=== PATIENT | male | born 1945 | race Caucasian/White ===

== ENCOUNTER → 2018-03-30 09:52 | Outpatient (CLI) | payer BC, SELFPAY ==
[2018-03-30 10:42] LABS: Absolute Lymphocyte Count 1.16 X10^3/ul (0.83-4.51); Absolute Neutrophil Count 3.7 X10^3/uL (2.0-7.7); Basophil# 0.03 X10^3/uL; Basophil% 0.6 % (0-1); Eosinophil# 0.08 X10^3/uL; Eosinophils% 1.5 % (0-5); Hematocrit 44.3 % (40-54); Hemoglobin 15.4 g/dl (13.0-16.5); Lymphocyte # 1.16 X10^3/ul (4.0); Lymphocyte % 21.4 % (19-41); Mean Corp Hgb Conc 34.8 g/gl (32-36); Mean Corpuscular Hgb 29.2 pg (27.0-32.0); Mean Corpuscular Volume 83.9 fL (80-94); Mean Platelet Vol. 10.7 fl (6.2-12.0); Monocyte# 0.43 X10^3/uL; Monocyte% 7.9 % (0-10); Neutrophil % 68.4 % (47-70); Platelet Count 153 K/mm3 (150-450); RBC Distribution Width CV 14.6 % (11.6-14.6); Red Blood Count 5.28 M/mm3 (4.6-6.2); White Blood Count 5.4 K/mm3 (4.4-11.0)
[2018-03-30 10:43] LABS: POSITIVE COUNT NO; POSITIVE DIFFERENTIAL NO; POSITIVE MORPHOLOGY NO
[2018-03-30 11:24] LABS: ALB/GLOB Ratio 1.2 RATIO (0.9-2.4); AST(SGOT) 17 U/L (15-37); Alanine Aminotransfer ALT/SGPT 23 U/L (16-61); Albumin, Serum 3.6 g/dL (3.2-5.0); Alkaline Phosphatase 75 U/L (45-117); Anion Gap 8 (5-15); BUN 18 mg/dL (7-18); BUN/Creat Ratio 16.7 RATIO (10-20); Calcium,Total 8.1 mg/dL (8.5-10.1); Chloride 110 mmol/L (98-107); Cholesterol 183 mg/dL (200); Creatinine, Serum 1.08 mg/dL (0.70-1.30); EST Glomerular Filtration Rate 72 mL/min (>60); Est Glom Filt Rate - Afr Amer 87 mL/min (>60); Glucose 88 mg/dL (74-106); High Density Lipoprotein 44 mg/dL; PSA,Total - Annual Screen 1.52 ng/mL (0.00-4.00); Potassium 4.5 mmol/L (3.5-5.1); Protein, Total 6.6 g/dL (6.4-8.2); Sodium Level 143 mmol/L (136-145); Thyroid Stim Hormone (TSH) 0.77 uIU/mL (0.358-3.74); Triglycerides 106 mg/dL; Very Low Density Lipoprotein 21 mg/dL (5-40)
--- OUTSIDE RECORDS SUMMARY | 2018-06-03 17:32 | XMS RPT_ITS | Summary of Care ---
:1945 Author Organization [facility] Address [address] [id number] Phone Care Team Providers Name Role Phone Susan Eller MD Primary Care Provider Reason for Visit Auth/Cert Status Reason Specialty Diagnoses / Procedures Referred By Contact Referred To Contact Diagnoses Persistent atrial fibrillation (HCC) Procedures Ablation Afib With Mapping Encounter Details Date Type Department Care Team Description 03/22/2017 Hospital Encounter [facility] Masoud Acuna, Persistent atrial Center Cardiac MD fibrillation (HCC) Non-Invasive Lab [address] [facility] [address] [place] [address] [phone] Allergies No Known Allergiesas of this encounter Medications Prescription Sig. Disp. Refills Start Date End Date Status ELIQUIS 5 mg Tab Take 5 mg by mouth 06/04/2015 Active 2 (two) times a day . metoprolol succinate Take 1 tablet (50 30 tablet 11 06/08/2015 02/06/2018 Active (TOPROL XL) 50 MG 24 mg total) by mouth hr daily. tabletIndications: Atrial fibrillation, unspecified lisinopril Take 10 mg by 09/28/2015 Active (PRINIVIL,ZESTRIL) mouth daily. 10 MG tablet CARTIA XT 180 mg 24 TAKE ONE CAPSULE 30 capsule 11 06/30/2016 Active hr BY MOUTH ONCE capsuleIndications: DAILY Atrial fibrillation (HCC) tadalafil (CIALIS) Take 1 (one) 6 tablet 10/31/2016 10/31/2017 Active 20 MG tablet (20 mg tabletIndications: total) by mouth as Erectile dysfunction needed for due to arterial erectile insufficiency dysfunction Take prior to sexual activity. propafenone (RYTHMOL Take 325 mg by Active SR) 325 MG 12 hr mouth 2 (two) capsule times a day. metoprolol succinate Take 1 (one) 180 tablet 1 02/06/2017 Active (TOPROL-XL) 50 MG 24 tablet (50 mg hr total) by mouth tabletIndications: daily. Persistent atrial fibrillation (HCC) as of this encounter Active Problems Problem Noted Date Persistent atrial fibrillation (HCC) 03/21/2017 Overview: Added automatically from request for surgery [id number] SVT (supraventricular tachycardia) (HCC) 03/21/2017 Erectile dysfunction due to arterial insufficiency 10/12/2015 Last Assessment & Plan: Trial of Cialis Atrial fibrillation (HCC) 06/08/2015 Overview: Probable Afib with RVR since URI in March KAI/CV 10/2015 Last Assessment & Plan: Rate controlled--54 Will cut toprol xl to 50 daily Cardiomyopathy (HCC) 06/08/2015 Overview: 35-40% Ef with Afib rvr - 05/2015 45% EF Last Assessment & Plan: No symptoms Doing well, Medications reviewed and will continue current meds Followup 1 year Social History Tobacco Use Types Packs/Day Years Used Date Never Smoker Smokeless Tobacco: Never Used Alcohol Use Drinks/Week oz/Week Comments No 0 Standard drinks or equivalent 0.0 Sex Assigned at Date Recorded Not on file as of this encounter Plan of Treatment Health Maintenance Due Date Last Done Comments COLONOSCOPY 1945 HEPATITIS C SCREENING 1945 TETANUS EVERY 10 YR 1945 ZOSTER VACCINE 2007 PNEUMOCOCCAL VACCINE AGE 65+ (1 of 2 - PCV13) 11/11/2012 SEQUENTIAL INFLUENZA VACCINE (#1) 2016 as of this encounter Procedures Procedure Name Priority Date/Time Associated Diagnosis Comments CARDIOVERSION EXTERNAL Routine 03/22/2017 2:32 Persistent atrial Results for this PM EST fibrillation (HCC) procedure are in the results section. in this encounter Results Cardioversion external (03/22/2017 2:32 PM) Narrative Indications/Pre-Op Diagnosis:: Atypical atrial flutter Conclusions / Diagnosis:?Successful DC cardioversion to sinus bradycardia with PACs. ? Technique: ? Following informed consent the patient was brought to the procedural room in a fasting state. The patient was connected to continuous cardiac rhythm and vital sign monitoring. Debrillator pads were placed in the appropriate location. The patient was given intravenous sedation medication by the anesthesiology service (please see their note for details). ? Synchronized biphasic cardioversion was performed at 100 joules. ? The patient recovered from sedation before leaving the procedural area in stable condition. Complications: No immediate complications. See nursing notes for further details Balwinder Morris MD, [facility] in this encounter Visit Diagnoses Diagnosis Persistent atrial fibrillation (HCC) Atrial fibrillation Insurance Payer Benefit Plan / Group Subscriber ID Type Phone Address DREW GRIGGS/PREF/HMO/PPO [id number] [phone] [place] [address] Home: as of this encounter
--- OUTSIDE RECORDS SUMMARY | 2018-06-03 17:32 | XMS RPT_ITS | Summary of Care ---
:1945 Author Organization [facility] Address [address] [place] [address] Phone Care Team Providers Name Role Phone Susan Eller MD Primary Care Provider Reason for Referral Cardio (Routine) Status Reason Specialty Diagnoses / Procedures Referred By Referred To Contact Contact Closed Cardiology Diagnoses Persistent atrial fibrillation (HCC) Marquis Acuna MD Procedures Echocardiogram transesophageal [address] [facility] [address] [place] [address] Cardio (Routine) Status Reason Specialty Diagnoses / Procedures Referred By Referred To Contact Contact Closed Cardiology Diagnoses Persistent atrial fibrillation (HCC) Marquis Acuna MD Procedures Echocardiogram transesophageal [address] [facility] [address] [place] [address] Reason for Visit Auth/Cert Status Reason Specialty Diagnoses / Procedures Referred By Contact Referred To Contact Diagnoses Persistent atrial fibrillation (HCC) Procedures Ablation Afib With Mapping Encounter Details Date Type Department Care Team Description 03/22/2017 Hospital Encounter [facility] Marquis Acuna MD [address] [facility] [address] [place] [address] [phone] Persistent atrial Center Cardiac [place], Balwinder Danielle MD [address] [facility] [address] [place] [address] fibrillation (HCC) Non-Invasive Lab [address] [place] [address] Allergies No Known Allergiesas of this encounter [...] tadalafil (CIALIS) Take 1 (one) 6 tablet 11 10/31/2016 10/31/2017 Active 20 MG tablet (20 [...] mouth tabletIndications: daily. Persistent atrial fibrillation (HCC) HYDROXYZINE HCL ORAL Take 25 mg by Active mouth as needed. as of this encounter Active Problems Problem Noted Date Persistent atrial fibrillation (HCC) 03/21/2017 Overview: Added automatically from request for surgery [id number] SVT (supraventricular tachycardia) ([facility]) 03/21/2017 Erectile dysfunction due to arterial insufficiency 10/12/2015 Last Assessment & Plan: Trial of Cialis Atrial fibrillation ([facility]) 06/08/2015 Overview: Probable Afib with RVR since URI in March KAI/CV 10/2015 Last Assessment & Plan: Rate controlled--54 Will cut toprol xl to 50 daily Cardiomyopathy ([facility]) 06/08/2015 Overview: 35-40% Ef with Afib rvr [...] Not on file as of this encounter Last Filed Vital Signs Vital Sign Reading Time Taken Blood Pressure 110/91 03/22/2017 3:00 PM EST Pulse 56 03/22/2017 3:15 PM EST Temperature 36.4 ??C (97.5 ??F) 03/22/2017 1:00 PM EST Respiratory Rate 12 03/22/2017 3:15 PM EST Oxygen Saturation 97% 03/22/2017 3:15 PM EST Inhaled Oxygen Concentration - - Weight 101.2 kg (223 lb) 03/22/2017 1:00 PM EST Height 190.5 cm (6' 3) 03/22/2017 1:00 PM EST Body Mass Index 27.87 03/22/2017 1:00 PM EST in this encounter Discharge Instructions Discharge Instr - Other Orders - Shari Arias RN - 03/22/2017 3:20 PM EST NOTHING TO EAT OR DRINK UNTIL 4 pm, THEN START WITH A SIP OF COOL LIQUID AND IF NO PROBLEMS YOU MAY RESUME REGULAR DIET NO DRIVING TODAY, NO SIGNING ANY LEGAL DOCUMENTS CONTINUE ALL OF YOUR HOME MEDS OFFICE WILL CALL WITH DATE FOR ABLATION Shari Arias RN - 03/22/2017Learning About Atrial Fibrillation What is atrial fibrillation? Atrial fibrillation (say AY-tree-mal rul-cukt-PLH-un) is the most common type of irregular heartbeat (arrhythmia). Normally, the heart beats in a strong, steady rhythm. In atrial fibrillation, a problem with the heart's electrical system causes the two upper parts of the heart (the atria) to quiver, or fibrillate. Your heart rate also may be faster than normal. Atrial fibrillation can be dangerous because if the heartbeat isn't strong and steady, blood can collect, or pool, in the atria. And pooled blood is more likely to form clots. Clots can travel to the brain, block blood flow, and cause a stroke. Atrial fibrillation can also lead to heart failure. Treatment for atrial fibrillation helps prevent stroke and heart failure. It also helps relieve symptoms. Atrial fibrillation is often caused by another heart problem. It may happen after heart surgery. It may also be caused by other problems, such as an overactive thyroid gland or lung disease. Many people with atrial fibrillation are able to live full and active lives. What are the symptoms? Some people feel symptoms when they have episodes of atrial fibrillation. But other people don't notice any symptoms. If you have symptoms, you may feel: ?? A fluttering, racing, or pounding feeling in your chest called palpitations. ?? Weak or tired. ?? Dizzy or lightheaded. ?? Short of breath. ?? Chest pain. ?? Confused. You may notice signs of atrial fibrillation when you check your pulse. Your pulse may seem uneven orfast. What can you expect when you have atrial fibrillation? At first, spells of atrial fibrillation may come on suddenly and last a short time. It may go away on its own or it goes away after treatment. This is called paroxysmal atrial fibrillation. Over time, the spells may last longer and occur more often. They often don't go away on their own. How is it treated? Treatments can help you feel better and prevent future problems, especially stroke and heart failure. The main types of treatment slow the heart rate, control the heart rhythm, and help prevent stroke. Your treatment will depend on the cause of your atrial fibrillation, your symptoms, and your risk forstroke. ?? Heart rate treatment. Medicine may be used to slow your heart rate. Your heartbeat may still be irregular. But these medicines keep your heart from beating too fast. They may also help relieve your symptoms. ?? Heart rhythm treatment. Different treatments may be used to try to stop atrial fibrillation and keep it from returning. They can also relieve symptoms. These treatments include medicine, electrical cardioversion to shock the heart back to a normal rhythm, a procedure called catheter ablation, and heart surgery. ?? Stroke prevention. You and your doctor can decide how to lower your risk. You may decide to take a blood-thinning medicine, such as aspirin or an anticoagulant. How can you live well with it? You can live well and help manage atrial fibrillation by having a heart-healthy lifestyle. To have a heart-healthy lifestyle: ?? Don't smoke. ?? Eat heart-healthy foods. ?? Be active. Talk to your doctor about what type and level of exercise is safe for you. ?? Stay at a healthy weight. Lose weight if you need to. ?? Manage stress. ?? Avoid alcohol if it triggers symptoms. ?? Manage other health problems such as high blood pressure, high cholesterol, and diabetes. ?? Avoid getting sick from the flu. Get a flu shot every year. When should you call for help? Call 911 anytime you think you may need emergency care. For example, call if: ?? You have symptoms of a stroke. These may include: ?? Sudden numbness, tingling, weakness, or loss of movement in your face, arm, or leg, especially ononly one side of your body. ?? Sudden vision changes. ?? Sudden trouble speaking. ?? Sudden confusion or trouble understanding simple statements. ?? Sudden problems with walking or balance. ?? A sudden, severe headache that is different from past headaches. Call your doctor now or seek immediate medical care if: ?? You have new or increased shortness of breath. ?? You feel dizzy or lightheaded, or you feel like you may faint. Watch closely for changes in your health, and be sure to contact your doctor if you have any problems. Follow-up care is a hahn part of your treatment and safety. Be sure to make and go to all appointments, and call your doctor if you are having problems. It's also a good idea to know your test results and keep a list of the medicines you take. Where can you learn more? Log into your personal health record on https://[employer] and enter L274 in the Education box to learn more about Learning About Atrial Fibrillation. Current as of: June 08, 2015 Content Version: 11.2 ?? 4202-6845 [employer]. Care instructions adapted under license by your healthcare professional. If you have questions about a medical condition or this instruction, always ask your healthcare professional. [employer] disclaims any warranty or liability for your use of this information. The following attachments cannot be sent through Care Everywhere.EPS (ELECTROPHYSIOLOGY STUDY) AND CATHETER ABLATION: PRE-OP (LIBYAN)in this encounter Plan of Treatment Scheduled Tests Name Priority Associated Diagnoses Order Schedule Electrocardiogram, Routine Once for 1 Occurrences starting 12-lead 03/22/2017 until 03/22/2017 Health Maintenance Due Date Last Done Comments [...] (HCC) procedure are in the results section. ECHOCARDIOGRAM Routine 03/22/2017 2:32 Persistent atrial Results for this TRANSESOPHAGEAL PM EST fibrillation (HCC) procedure are in the results section. in this encounter Results Echocardiogram transesophageal (03/22/2017 2:32 PM) Specimen Performing Laboratory [facility] [address] [facility] [place] [address] Narrative Transesophageal Echocardiogram Patient:? CRYS Solomon? Med Rec#:?[id number]? (Age): 1945(71y) ? Height:? 191(cm)/74(in) Study Date:?03/22/2017? Weight:? 101(kg)/222(lbs Room#:? OP? BSA:?2.3? Type:?Outpatient? Loc:?KAI Procedure Room Sex:? M Reading:? Balwinder Morris MD? Referring:? MARQUIS ACUNA J.? Performing:?Balwinder Morris MD? Nurse:? Reina Hayes RN? [employer]ist Supplies Salesperson:?Bernardino Mock RDCS? History:?Arrhythmia. Atrial fibrillation. Cardiomyopathy. Hypertension. Tachycardia. Diagnosis:?ICD-10-PCS Unspecified atrial fibrillation (I48.91) Atrial Fibrillation (427.31) CPT Code(s):?Echo Color Flow Velocity Mapping (63202) KAI R-T IMG 2D W/PRB IMG ACQUISJ IR (27067) Summary:?Patient identity verified and ID band on (pause and confirm). Procedure explained and patient verified understanding. Consent obtained for KAI. Discharge instructions given to patient/family. 9ml Saline agitated with 1ml air, injected IV push per Lab Protocol. Conclusions: ?LVEF 50%. The basal inferior wall is hypokinetic. ?Mildly dilated right venticle with mild RV hypokinesis. ?Moderately dilated left atrium. No evidence of DRE thrombus. ?Moderate-severely dilated right atrium. ?Mild aortic regurgitation. ?Mild mitral regurgitation. ?Moderate tricuspid regurgitation. ?Small pericardial effusion. ?There was no evidence of intracardiac thrombus. Following the KAI, the patient underwent successful DC cardioversion (see separate cardioversion report). Findings? Reason For Study: Atrial flutter.? KAI Procedures: The posterior pharynx was anesthetized. The patient was placed in a left lateral recumbant position and a plastic bite block was inserted into the mouth. IV sedation was administered. A transesophageal echocardiography probe was inserted into the posterior pharynx and the esophagus was then intubated without difficulty. Multiple views were then obtained from the upper, mid and lower esophagus and the gastric fundus. The scope was rotated 180 degrees and the aorta was visualized. The scope was withdrawn under continuous suction.?The patient tolerated the procedure well without any apparent complications.?The procedure and risk were explained to the patient who consented to the study. Lidocaine Viscous 2% 15 ml by mouth.?Please see Anesthesiologist's notes for all medications given..? Left Ventricle: The left ventricular chamber size and thickness is normal.?The LV Ejection Fraction is 50%.? The basal inferior wall is hypokinetic.? Left Atrium: The left atrium is moderately dilated.?No right to left shunting is detected by agitated saline contrast.?No thrombus is visualized within the left atrium.?There is no thrombus visualized in the left atrial appendage.? Right Ventricle: The right ventricle is mildly dilated.? The right ventricular global systolic function is mildly reduced.? Right Atrium: The right atrium is moderate to severely dilated.? Aortic Valve: The aortic valve is trileaflet.?There is no hemodynamically significant stenosis.?There is mild aortic regurgitation.? Mitral Valve: The mitral valve leaflets appear normal.?There is mild mitral regurgitation.? Tricuspid Valve: The tricuspid valve leaflets are normal.? There is moderate tricuspid regurgitation.? Pulmonic Valve: The pulmonic valve appears normal.?There is no evidence of pulmonic regurgitation.? Pericardium: There is a small pericardial effusion.? Aorta: There is no dilatation of the aortic root.? HR 108 BP 127/92 Electronically Signed at 03/22/2017 16:41:43 by: Balwinder Morris? Procedure Note Interface, [facility] - 03/22/2017 4:43 PM EST Transesophageal Echocardiogram Patient: CRYS Solomon [facility] Rec#: [id number] (Age): 1945(71y) Height: 191(cm)/74(in) Study Date: 03/22/2017 Weight: 101(kg)/222(lbs Room#: OP BSA: 2.3 Type: Outpatient Loc: KAI Procedure Room Sex: M Reading: Balwinder Morris MD Referring: MARQUIS ACUNA J. Performing: Balwinder Morris MD Nurse: Reina Hayes RN Florist Supplies Salesperson: Bernardino Mock [facility] History: Arrhythmia. Atrial fibrillation. Cardiomyopathy. Hypertension. Tachycardia. Diagnosis: ICD-10-PCS Unspecified atrial fibrillation (I48.91) Atrial Fibrillation (427.31) CPT Code(s): Echo Color Flow Velocity Mapping (52700) KAI R-T IMG 2D W/PRB IMG ACQUISJ IR (17556) Summary: Patient identity verified and ID band on (pause and confirm). Procedure explained and patient verified understanding. Consent obtained for KAI. Discharge instructions given to patient/family. 9ml Saline agitated with 1ml air, injected IV push per Lab Protocol. Conclusions: LVEF 50%. The basal inferior wall is hypokinetic. Mildly dilated right venticle with mild RV hypokinesis. Moderately dilated left atrium. No evidence of DRE thrombus. Moderate-severely dilated right atrium. Mild aortic regurgitation. Mild mitral regurgitation. Moderate tricuspid regurgitation. Small pericardial effusion. There was no evidence of intracardiac thrombus. Following the KAI, the patient underwent successful DC cardioversion (see separate cardioversion report). Findings Reason For Study: Atrial flutter. KAI Procedures: The posterior pharynx was anesthetized. The patient was placed in a left lateral recumbant position and a plastic bite block was inserted into the mouth. IV sedation was administered. A transesophageal echocardiography probe was inserted into the posterior pharynx and the esophagus was then intubated without difficulty. Multiple views were then obtained from the upper, mid and lower esophagus and the gastric fundus. The scope was rotated 180 degrees and the aorta was visualized. The scope was withdrawn under continuous suction. The patient tolerated the procedure well without any apparent complications. The procedure and risk were explained to the patient who consented to the study. Lidocaine Viscous 2% 15 ml by mouth. Please see Anesthesiologist's notes for all medications given.. Left Ventricle: The left ventricular chamber size and thickness is normal. The LV Ejection Fraction is 50%. The basal inferior wall is hypokinetic. Left Atrium: The left atrium is moderately dilated. No right to left shunting is detected by agitated saline contrast. No thrombus is visualized within the left atrium. There is no thrombus visualized in the left atrial appendage. Right Ventricle: The right ventricle is mildly dilated. The right ventricular global systolic function is mildly reduced. Right Atrium: The right atrium is moderate to severely dilated. Aortic Valve: The aortic valve is trileaflet. There is no hemodynamically significant stenosis. There is mild aortic regurgitation. Mitral Valve: The mitral valve leaflets appear normal. There is mild mitral regurgitation. Tricuspid Valve: The tricuspid valve leaflets are normal. There is moderate tricuspid regurgitation. Pulmonic Valve: The pulmonic valve appears normal. There is no evidence of pulmonic regurgitation. Pericardium: There is a small pericardial effusion. Aorta: There is no dilatation of the aortic root. HR 108 BP 127/92 Electronically Signed at 03/22/2017 16:41:43 by: Balwinder Morris MD in this encounter Visit Diagnoses Diagnosis Persistent atrial fibrillation (HCC) Atrial fibrillation Administered Medications Inactive Administered Medications - up to 3 most recent administrations Medication Order MAR Action Action Date Dose Rate Site lidocaine (XYLOCAINE) 2 % viscous Given 03/22/2017 14:05 EST 15 mL solution Mouth/Throat, Code/trauma/sedation medication, Procedure Medication, Starting 03/22/17 at 1405 in this encounter Insurance Payer Benefit Plan / Group Subscriber ID Type Phone Address DREW GRIGGS/PREF/HMO/PPO [id number] [phone] [place] [address] Home: as of this encounter
--- OUTSIDE RECORDS SUMMARY | 2018-06-03 17:32 | XMS RPT_ITS | Summary of Care ---
:1945 Author Organization [facility] Address [address] [place] [address] Phone Care Team Providers Name Role Phone Susan Eller MD Primary Care Provider Reason for Visit Reason Comments Atrial Fibrillation yearly follow up Encounter Details Date Type Department Care Team Description 02/06/2017 Office Visit [facility] Heart & Mayur Correia Persistent atrial Vascular Physicians MD Ivonne fibrillation [address] [place] [address] Rd ([facility]);Dilated [place], [place] cardiomyopathy ([facility]) [id number] [place], [place] [phone] Allergies No Known Allergiesas of this encounter Medications Prescription Sig. Disp. Refills Start Date End Date Status ELIQUIS 5 mg Tab Take 5 mg by 06/04/2015 Active mouth 2 (two) times a day . lisinopril Take 10 mg by 09/28/2015 Active (PRINIVIL,ZESTRIL) mouth daily. 10 MG tablet CARTIA XT 180 mg TAKE ONE CAPSULE 30 capsule 11 06/30/2016 Active 24 hr BY MOUTH ONCE capsuleIndications DAILY : Atrial fibrillation (HCC) tadalafil (CIALIS) Take 1 (one) 6 tablet 11 10/31/2016 Active 20 MG tablet (20 mg 8 tabletIndications: total) by mouth Erectile as needed for dysfunction due to erectile arterial dysfunction Take insufficiency prior to sexual activity. propafenone Take 325 mg by Active (RYTHMOL SR) 325 mouth 2 (two) MG 12 hr capsule times a day. metoprolol Take 1 (one) 180 tablet 1 02/06/2017 Active succinate tablet (50 mg (TOPROL-XL) 50 MG total) by mouth 24 hr daily. tabletIndications: Persistent atrial fibrillation (HCC) propafenone Take 225 mg by Discontinued (RYTHMOL SR) 225 mouth 2 (two) 7 MG 12 hr capsule times a day. metoprolol Take 1 (one) 180 tablet 1 09/12/2016 Discontinued succinate tablet (50 mg 7 (TOPROL-XL) 50 MG total) by mouth 24 hr tablet 2 (two) times a day. as of this encounter Active Problems Problem Noted Date Erectile dysfunction due to arterial insufficiency 10/12/2015 [...] will continue current meds Followup 1 year as of this encounter Social History Tobacco Use Types Packs/Day Years Used Date Never Smoker Smokeless Tobacco: Never Used Alcohol Use Drinks/Week oz/Week Comments No 0 Standard drinks or equivalent 0.0 Sex Assigned at Date Recorded Not on file as of this encounter Last Filed Vital Signs Vital Sign Reading Time Taken Blood Pressure 146/77 02/06/2017 9:26 AM EST Pulse 54 02/06/2017 9:26 AM EST Temperature - - Respiratory Rate - - Oxygen Saturation - - Inhaled Oxygen Concentration - - Weight 114.2 kg (251 lb 12.8 oz) 02/06/2017 9:26 AM EST Height 190.5 cm (6' 3) 02/06/2017 9:26 AM EST Body Mass Index 31.47 02/06/2017 9:26 AM EST in this encounter Progress Notes Mayur Correia MD - 02/06/2017 9:41 AM ESTFormatting of this note may be different from the original. Patient Name: Homero Kennedy II MR #: [id number] Assessment and Plan 02/06/17 Dear Susan Eller MD, Homero L Richert II was seen today and my impressions/recommendations are as follows: Atrial fibrillation (HCC) Rate controlled--54 Will cut toprol xl to 50 daily Cardiomyopathy (HCC) No symptoms Doing well, Medications reviewed and will continue current meds Followup 1 year Thank you or allowing me to participate in the care of your patients. No orders of the defined types were placed in this encounter. EKG:not done Subjective: Patient seen in followup for Problem Atrial Fibrillation (Hcc) Probable Afib with RVR since URI in March KAI/CV 10/2015 Cardiomyopathy (Hcc) 35-40% Ef with Afib rvr - 05/2015 45% EF Rash periodically Asked him to split up meds and monitor Denies chest discomfort, sob, palpitations, pnd, orthopnea,edema or syncope. PMH: Past Medical History: Diagnosis Date ??? Arrhythmia A-fib ??? Atrial fibrillation (HCC) ??? Cardiomyopathy (HCC) ??? Goiter ??? History of cardioversion ??? Hypertension ??? LAZ on CPAP Home Medications: Patient's Medications New Prescriptions No medications on file Previous Medications CARTIA XT 180 MG 24 HR CAPSULE TAKE ONE CAPSULE BY MOUTH ONCE DAILY ELIQUIS 5 MG TAB Take 5 mg by mouth 2 (two) times a day . LISINOPRIL (PRINIVIL,ZESTRIL) 10 MG TABLET Take 10 mg by mouth daily. METOPROLOL SUCCINATE (TOPROL XL) 50 MG 24 HR TABLET Take 1 tablet (50 mg total) by mouth daily. PROPAFENONE (RYTHMOL SR) 325 MG 12 HR CAPSULE Take 325 mg by mouth 2 (two) times a day. TADALAFIL (CIALIS) 20 MG TABLET Take 1 (one) tablet (20 mg total) by mouth as needed for erectile dysfunction Take prior to sexual activity. Modified Medications Modified Medication Previous Medication METOPROLOL SUCCINATE (TOPROL-XL) 50 MG 24 HR TABLET metoprolol succinate (TOPROL-XL) 50 MG 24 hr tablet Take 1 (one) tablet (50 mg total) by mouth daily. Take 1 (one) tablet (50 mg total) by mouth 2 (two) times a day. Discontinued Medications PROPAFENONE (RYTHMOL SR) 225 MG 12 HR CAPSULE Take 225 mg by mouth 2 (two) times a day. Physical exam: BP 146/77 (BP Location: Left arm, Patient Position: Sitting) Pulse (!) 54 Ht 6' 3 Wt 114.2 kg(251 lb 12.8 oz) BMI 31.47 kg/m2 General: No acute distress, alert, and oriented x3. HEENT: Normocephalic, Neck: Supple, Cardiovascular: Regular rate and rhythm. No , murmurs, No JVD, No Carotid Bruits Respiratory: Clear to auscultation bilaterally Abdominal: Soft, nontender, nondistended,. Skin: Normal turgor, well-hydrated, Extremities : No clubbing cyanosis or edema Neurological: Cranial nerves 2 through 12 intact grossly. No focal neurological deficits noted. Psych: Normal mood and affect. ROS/MA were reviewedIliana Chauhan RN - 02/06/2017 9:15 AM ESTReview of Systems Constitution: Negative for diaphoresis, malaise/fatigue, weight gain and weight loss. HENT: Negative for hearing loss, nosebleeds and tinnitus. Eyes: Negative for blurred vision and visual disturbance. Cardiovascular: Negative for chest pain, claudication, cyanosis, dyspnea on exertion, irregular heartbeat, leg swelling, near-syncope, orthopnea, palpitations, paroxysmal nocturnal dyspnea and syncope. Respiratory: Negative for hemoptysis, shortness of breath and snoring. Endocrine: Negative for cold intolerance and heat intolerance. Hematologic/Lymphatic: Does not bruise/bleed easily. Skin: Negative for flushing, poor wound healing and rash. Musculoskeletal: Negative for back pain, muscle weakness and myalgias. Gastrointestinal: Negative for abdominal pain, change in bowel habit, melena, nausea and vomiting. Genitourinary: Negative for decreased libido and hematuria. Neurological: Negative for loss of balance and numbness. Psychiatric/Behavioral: Negative for memory loss. The patient is not nervous/anxious. in this encounter Miscellaneous Notes Assessment & Plan Note - Mayur Correia MD - 02/06/2017 9:41 AM EST Associated Problem(s): Cardiomyopathy (HCC)No symptoms Doing well, Medications reviewed and will continue current meds Followup 1 year Assessment & Plan Note - Mayur Correia MD - 02/06/2017 9:40 AM EST Associated Problem(s): Atrial fibrillation (HCC)Rate controlled--54 Will cut toprol xl to 50 dailyin this encounter Plan of Treatment Health Maintenance Due Date Last Done Comments COLONOSCOPY 1945 HEPATITIS C SCREENING 1945 TETANUS EVERY 10 YR 1945 ZOSTER VACCINE 2007 PNEUMOCOCCAL VACCINE AGE 65+ (1 of 2 - PCV13) 11/11/2012 SEQUENTIAL INFLUENZA VACCINE (#1) 2016 as of this encounter Visit Diagnoses Diagnosis Persistent atrial fibrillation (HCC) Atrial fibrillation Dilated cardiomyopathy (HCC) Other primary cardiomyopathies in this encounter Insurance Payer Benefit Plan / Group Subscriber ID Type Phone Address DREW GRIGGS/PREF/HMO/PPO [id number] [phone] [place], [place] Home: [phone] as of this encounter
--- OUTSIDE RECORDS SUMMARY | 2018-06-03 17:32 | XMS RPT_ITS | Summary of Care ---
:1945 Author Organization [facility] Address [address] [place] [address] Phone Care Team Providers Name Role Phone Susan Eller MD Primary Care Provider Encounter Details Date Type Department Care Team Description 03/22/2017 Documentation [facility] Heart & RialsMasoud MD Vascular Physicians [address] [place] [address] [place] [id number] Allergies No Known Allergiesas of this encounter Medications Prescription Sig. Disp. Refills Start Date End Date Status ELIQUIS 5 mg Tab Take 5 mg by mouth 06/04/2015 Active 2 (two) times a day . metoprolol succinate Take 1 tablet (50 30 tablet 06/08/2015 02/06/2018 Active (TOPROL XL) 50 MG 24 mg total) by mouth hr daily. tabletIndications: Atrial fibrillation, unspecified lisinopril Take 10 mg by 09/28/2015 Active (PRINIVIL,ZESTRIL) mouth daily. 10 MG tablet CARTIA XT 180 mg 24 TAKE ONE CAPSULE 30 capsule 06/30/2016 Active hr BY MOUTH ONCE capsuleIndications: [...] Overview: Added automatically from request for surgery [id number] SVT (supraventricular tachycardia) (HCC) 03/21/2017 Erectile dysfunction due to arterial insufficiency 10/12/2015 Last Assessment & Plan: Trial of Cialis Atrial fibrillation (HCC) 06/08/2015 Overview: Probable Afib with RVR since URI in March KAI/CV 10/2015 Last Assessment & Plan: Rate controlled--54 Will cut toprol xl to 50 daily Cardiomyopathy ([facility]) 06/08/2015 Overview: 35-40% Ef with Afib [...] Not on file as of this encounter Progress Notes Masoud Acuna MD - 03/22/2017 3:17 PM ESTFormatting of this note may be different from the original. Consultation Patient Name: Homero Kennedy II Admit Date: MR #: [id number] : 1945 Physicians: Susan Eller MD (Family); No ref. provider found (Referring) Assessment and Plan Afib and atrial flutter: KAI/CV today, ablation in future History of Present Illness: Pt seen in PCU. H/O afib and found on EKG to have regular rhythm with ventricular rate of 106 bpm. No identifiable P waves. KAI performed and showed no clot. Pt successfully cardioverted to NSR. Long discussion with pt and (60 min face to face counseling) re: afib, atrial flutter, and treatment options. Recommend pt return electively for afib/flutter ablation. Discussed risks and possible complications including stroke, perforation, esophageal damage, av block with need for pacer, pain, bleeding. Reviewed discharge and followup instructions. EKG: Atrial Flutter with controlled rate. History: Past Medical History: Diagnosis Date ??? Arrhythmia A-fib ??? Atrial fibrillation (HCC) ??? Cardiomyopathy (HCC) ??? Goiter ??? History of cardioversion ??? Hypertension ??? LAZ on CPAP Past Surgical History: Procedure Laterality Date ??? THYROIDECTOMY 2005 Family History Problem Relation Age of Onset ??? Hypertension Mother ??? Heart attack Mother ??? Hyperlipidemia Mother ??? Hypertension Father ??? Heart attack Father ??? Hyperlipidemia Father Social History Social History ??? Marital status: Spouse name: N/A ??? Number of children: N/A ??? Years of education: N/A Occupational History ??? Not on file. Social History Main Topics ??? Smoking status: Never Smoker ??? Smokeless tobacco: Never Used ??? Alcohol use No ??? Drug use: No ??? Sexual activity: Not on file Other Topics Concern ??? Not on file Social History Narrative ??? No narrative on file Allergy Information: I have reviewed the patient's allergies. Patient has no known allergies. Home Medications: Prior to Admission medications Medication Sig Start Date End Date Taking? Authorizing Provider CARTIA XT 180 mg 24 hr capsule TAKE ONE CAPSULE BY MOUTH ONCE DAILY 06/30/16 Mayur Correia MD ELIQUIS 5 mg Tab Take 5 mg by mouth 2 (two) times a day . 06/04/15 Historical Provider, HYDROXYZINE HCL ORAL Take 25 mg by mouth as needed. Historical Provider, lisinopril (PRINIVIL,ZESTRIL) 10 MG tablet Take 10 mg by mouth daily. 09/28/15 Historical Provider, metoprolol succinate (TOPROL XL) 50 MG 24 hr tablet Take 1 tablet (50 mg total) by mouth daily. Patient taking differently: Take 50 mg by mouth 2 (two) times a day . 06/08/15 02/06/18 Mayur Correia MD metoprolol succinate (TOPROL-XL) 50 MG 24 hr tablet Take 1 (one) tablet (50 mg total) by mouth daily. 02/06/17 Mayur Correia MD propafenone (RYTHMOL SR) 325 MG 12 hr capsule Take 325 mg by mouth 2 (two) times a day. Historical Provider, tadalafil (CIALIS) 20 MG tablet Take 1 (one) tablet (20 mg total) by mouth as needed for erectile dysfunction Take prior to sexual activity. 10/31/16 10/31/17 Mayur Correia MD Review of Systems: The following system(s) were reviewed and pertinent findings noted: All other systems reviewed and negative other than HPI Physical Examination: Vital Signs: There were no vitals taken for this visit. Physical Exam: General: No acute distress, alert, and oriented x3. HEENT: Normocephalic, normal oral mucosa, normal conjunctiva Neck: Supple, no thyromegaly,no palpable adenopathy Cardiovascular: Regular rate and rhythm. No murmurs, or gallops noted. .No JVD, No Carotid Bruits Respiratory: Clear to auscultation bilaterally without wheezes, rhonchi, or crackles noted. Abdominal: Soft, nontender, nondistended, No HSM or masses noted. Skin: Normal turgor, well-hydrated, no rashes noted. Extremities : No clubbing cyanosis or edema Neurological: Cranial nerves 2 through 12 intact grossly. No focal neurological deficits noted. Psych: Normal mood and affect. Laboratory and Additional Data Reviewed: Laboratory 03/22/17 3:22 PM Results from last 7 days Lab Units 03/21/17 EXT - BUN mg/dL 32 EXT - CREATININE mg/dL 1.40 Results from last 7 days Lab Units 03/21/17 EXT - WHITE BLOOD CELL COUNT K/mcL 8.60 EXT - HGB g/dL 16.1 EXT - HCT % 46.9 EXT - PLATELET COUNT K/mcL 199 EXTINR 1.3 ? in this encounter Plan of Treatment Health Maintenance Due Date Last Done Comments COLONOSCOPY 1945 HEPATITIS C SCREENING 1945 TETANUS EVERY 10 YR 1945 ZOSTER VACCINE 2007 PNEUMOCOCCAL VACCINE AGE 65+ (1 of 2 - PCV13) 11/11/2012 SEQUENTIAL INFLUENZA VACCINE (#1) 2016 as of this encounter Insurance Payer Benefit Plan / Group Subscriber ID Type Phone Address DREW GRIGGS/PREF/HMO/PPO [id number] as of this encounter
--- OUTSIDE RECORDS SUMMARY | 2018-06-03 17:33 | XMS RPT_ITS ---
:1945 Author Organization [place] Care Team Providers Name Role Phone Susan Eller Attending Unavailable Susan Eller A Primary Care Unavailable Mayur Can Admitting Unavailable Mayur Can Attending Unavailable Fab Ellerine A Primary Care Unavailable Marnie Traylor Admitting Unavailable Marnie Traylor Attending Unavailable Fab Ellerine A Primary Care Unavailable Fab Ellerine A Admitting Unavailable Fab Ellerine A Attending Unavailable Daphnie Susan A Primary Care Unavailable Fab Ellerine A Attending Unavailable Fab Ellerine A Primary Care Unavailable Taniya Ma Consulting Unavailable aTniya Ma Attending Unavailable Fab Ellerine A Primary Care Unavailable MAYUR CAN Attending Unavailable LONGSDORF, SUSAN RITA Primary Care Unavailable RIALS, MARQUIS J. Admitting Unavailable RIALS, MARQUIS J. Attending Unavailable LONGSDORF, SUSAN RITA Primary Care Unavailable PRIYANKA WHITMAN Attending Unavailable LONGSDORF, SUSAN RITA Primary Care Unavailable RIALS, MARQUIS J. Admitting Unavailable RIALS, MARQUIS J. Attending Unavailable LONGSDORF, SUSAN RITA Primary Care Unavailable LONGSDORF, SUSAN Attending Unavailable LONGSDORF, SUSAN Referring Unavailable LONGSDORF, SUSAN Primary Care Unavailable Kymberly, Dr. Marnie Rust Admitting Unavailable Kymberly, Dr. Marnie Rust Attending Unavailable *SELF, REFERRED Referring Unavailable Longsdorf, Susan Rita Primary Care Unavailable Kymberly, Dr. Marnie Rust Admitting Unavailable Kymberly, Dr. Marnie Rust Attending Unavailable Kymberly, Dr. Marnie Rust Referring Unavailable Longsdorf, Susan Rita Primary Care Unavailable Kymberly, Dr. Marnie Rust Admitting Unavailable Kymberly, Dr. Marnie Rust Attending Unavailable Kymberly, Dr. Marnie Rust Referring Unavailable Longazorf, Susan Rita Primary Care Unavailable Kymberly, Dr. Marnie Rust Admitting Unavailable Kymberly, Dr. Marnie Rust Attending Unavailable *SELF, REFERRED Referring Unavailable [facility], Susan Rita Primary Care Unavailable PROBLEMS PROBLEMS DATE TYPE CONDITION / CODE ATTENDING STATUS SOURCE 11/30/2017 Final diagnosis Unspecified atrial Dr. Kymberly [facility] (discharge) fibrillation / [facility] I48.91(ICD-10) Repository 11/30/2017 Final diagnosis Essential (primary) Dr. Kymberly [facility] (discharge) hypertension / [facility] I10(ICD-10) Repository 08/11/[address] Kymberly [facility] diagnosis fibrillation / [facility] I48.1(ICD-10) Repository 08/11/2017 Final diagnosis Persistent atrial Dr. 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 Kymberly [facility] (discharge) use of [facility] anticoagulants / Repository Z79.01(ICD-10) 08/11/2017 Final diagnosis Obstructive sleep Dr. Kymberly [facility] (discharge) apnea (adult) [facility] (pediatric) / Repository G47.33(ICD-10) 08/11/2017 Final diagnosis Unspecified atrial Dr. 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 [facility] diagnosis fibrillation / Repository I48.0(ICD-10) 06/22/2017 Admitting Unspecified atrial MARQUIS BORJA. [facility] diagnosis fibrillation / Three I48.91(ICD-10) Repository PROCEDURES PROCEDURES DATE CODE DESCRIPTION STATUS SOURCE 08/10/2017 [id number](ICD10- [id number] Completed [facility] Repository RESULTS RESULTS CBC W/DIFF, AUTOMATED Collected: 03/30/2018 Status: F Source: [facility] 10:02 AM [facility] REPOSITORY TYPE CODE TESTS RESULT OUT OF RANGE REFERENCE UNITS LAB L100.1000 4.4-11.0 K/mm3 Normal WBC 5.4 LAB L100.1200 4.6-6.2 M/mm3 Normal RBC 5.28 LAB L100.1300 13.0-16.5 g/dl Normal HGB 15.4 LAB L100.1400 40-54 % Normal HCT 44.3 LAB L100.1500 80-94 fL Normal MCV 83.9 LAB L100.1600 27.0-32.0 pg Normal MCH 29.2 LAB L100.1700 32-36 g/gl Normal MCHC 34.8 LAB L100.1810 11.6-14.6 % Normal RDW CV 14.6 LAB L100.1820 35.1-43.9 fl High RDW SD 44.0 LAB L100.1900 150-450 K/mm3 Normal PLT 153 LAB L100.2000 6.2-12.0 fl Normal MPV 10.7 LAB L100.2100 47-70 % Normal NEUT% 68.4 LAB L100.2200 19-41 % Normal LY% 21.4 LAB L100.2300 0-10 % Normal MONO% 7.9 LAB L100.2400 0-5 % Normal EO% 1.5 LAB L100.2500 0-1 % Normal BASO% 0.6 LAB L100.2550 0.0-0.9 % Normal IM GRAN % 0.200 Result Comment: IG% - Immature Granulocytes (promyelocytes, myelocytes and metamyelocytes) > 1% indicates that a LEFT SHIFT is Present. LAB L100.2620 2.0-7.7 X10 3/uL Normal Absolute Neut 3.7 LAB L100.2720 0.83-4.51 X10 3/ul Normal Absolute Lymph 1.16 Performed By: #### L100.0100 #### [facility] [address] [place], [place], [address] COMPREHENSIVE METABOLIC Collected: 03/30/2018 Status: F [facility] REPOSITORY TYPE CODE TESTS RESULT OUT OF RANGE REFERENCE UNITS LAB L501.0100 74-106 mg/dL Normal GLU 88 Result Comment: Please note revised GLUCOSE reference range effective 2017. LAB L501.1000 7-18 mg/dL Normal BUN 18 LAB L501.1100 0.70-1.30 mg/dL Normal CREAT,SERUM 1.08 Result Comment: The validity of the calculated GFR AND GFRAA in patients over 70 years has not been determined. Clinical correlation is essential. LAB L501.1110 >60 mL/min Normal EST GFR 72 Result Comment: Non- GFR Calc LAB L501.1115 >60 mL/min Normal EST GFR - AA 87 Result Comment: GFR Calc LAB L501.1300 10-20 RATIO Normal BUN/CRE 16.7 LAB L501.1500 6.4-8.2 g/dL T Normal PROT 6.6 LAB L501.1800 3.2-5.0 g/dL Normal ALB 3.6 LAB L501.1950 2.2-4.2 g/dL Normal GLOB 3.0 LAB L501.2000 0.9-2.4 RATIO Normal A/G 1.2 LAB L501.2200 8.5-10.1 mg/dL Low CA 8.1 LAB L501.4100 15-37 U/L Normal AST 17 LAB L501.4305 45-117 U/L Normal ALK P 75 LAB L501.4405 16-61 U/L Normal ALT 23 LAB L501.4600 0.20-1.00 mg/dL T Normal BILI 0.90 LAB L501.5300 136-145 mmol/L NA Normal 143 LAB L501.5600 3.5-5.1 mmol/L K Normal 4.5 LAB L501.5900 98-107 mmol/L High CL 110 LAB L501.6100 21.0-32.0 mmol/L Normal CO2 25.0 LAB L501.6200 5-15 Normal GAP 8 Performed By: #### L500.4050, L500.4100, L501.9520, L501.9910 #### [facility] [address] [place], [place], [id number] LIPID PROFILE Collected: 03/30/2018 Status: F Source: [place] 10:02 AM [facility] REPOSITORY TYPE CODE TESTS RESULT OUT OF RANGE REFERENCE UNITS LAB L501.4900 200 mg/dL Normal CHOL 183 Result Comment: <200 mg/dL Desirable 200-240 mg/dL Borderline >240 mg/dL High Risk LAB L501.5000 mg/dL Normal TRIG 106 Result Comment: The drugs N-Acetylcysteine and Metamizole may falsely depress this assay. Serum Triglycerides Reference Interval Normal <150 mg/dL Borderline high 150 - 199 mg/dL High 200 - 499 mg/dL Very High > or = 500 mg/dL LAB L501.6400 mg/dL Normal HDL 44 Result Comment: The drugs N-Acetylcysteine and Metamizole may falsely depress this assay. Reference Range HDL <40 mg/dL Low HDL Cholesterol HDL >or= 60 mg/dL High HDL Cholesterol LAB L501.6500 0-130 mg/dL Normal LDL 118 LAB L501.6600 5-40 mg/dL Normal VLDL 21 Performed By: #### L500.4050, L500.4100, L501.9520, L501.9910 #### [facility] [address] [place], [place], [id number] THYROID STIM HORMONE Collected: 03/30/2018 Status: F Source: [facility] (TSH) 10:02 AM [facility] REPOSITORY TYPE CODE TESTS RESULT OUT OF RANGE REFERENCE UNITS LAB L501.9520 0.358-3.74 uIU/mL Normal TSH 0.77 Performed By: #### L500.4050, L500.4100, L501.9520, L501.9910 #### [facility] [address] [place], [address] PSA,TOTAL - ANNUAL Collected: 03/30/2018 Status: F Source: BUD SCREEN 10:02 AM [facility] REPOSITORY TYPE CODE TESTS RESULT OUT OF RANGE REFERENCE UNITS LAB L501.9910 0.00-4.00 ng/mL Normal PSA,TOT 1.52 SCREEN Result Comment: This test was performed using the TPSA assay method for the [employer] chemistry system. Values obtained with different assay methods cannot be used interchangably. When changing PSA assays in the course of monitoring a patient, additional sequential testing should be carried out to confirm baseline values. Performed By: #### L500.4050, L500.4100, L501.9520, L501.9910 #### [facility] [address] [place], [address] OFFICE VISIT Observed: 11/30/2017 Status: UNK Source: [place] (CARDIOLOGY) 3:34 PM [facility]ALS REPOSITORY Chief Complaint HOMERO SPANGLER is being seen for a 8 week follow-up of atrial fibrillation. Pleasant 72 yo male voicing no cardiac complaints at this time. Patient continues to complaint of of itching (dermatitis) although it has gotten progressively better since Propafenone and Metoprolol has been discontinued. Patient denies palpitations, lightheadedness, syncope, dyspnea, orthopnea, diaphoresis, N/V and chest pain/discomfort. Sultana Pappas RN History of Present Illness 72 yo was diagnosed with AF in 2016. During a routine physical examination - his doctor noted the atrial fibrillation. He was then referred to [facility] for evaluation. Dr. Abdi initiated on medic ations and he undertook cardioversion and it was successful for 8 months. His symptoms improved significantly. The cardioversion was repeated and propafenone was started- he maintained sinus rhythm for 3 months. In February 2017- the rhythm was atrial flutter he performed another cardioversion in March 2017. The propafenone was continued - metoprolol was increased to 100 mg bid. The cardioversion wa s successful - heart rates were in the 50-60's. This lasted about a week - heart rates have been 100-110 bpm. Symptoms now are fatigue, he has a rash - he has some shortness of breath since April. He is short of breath with any exertion. He denies syncope but does have lightheadedness. Caffeine: iced tea 32 ounce ETOH: None Cigarettes: None Energy drinks - None He weaned off the metoprolol and the rash has improved although it is still present. REcently he was bitten by a wasp and has some swelling in the neck. He also notes that he has some swelling of his legs after work Patient has noted improvement in his rash since stopping the propafenone but he is still with some dermatitis. He has been checking his pulse rate at home and it has been normal. He was also diagnosed with hypertension at the onset of the AF diagnosis. 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 He is using CPAP. There are no spiritual/cultural practices/values/needs that are important to know Initial Fall Risk Screening: HOMERO has not fallen in the last 6 months. Domestic Violence Screen: Does not feel threatened or abused physically, emotionally or sexually. Do you feel UNSAFE? The patient feels safe in the home. Depression/Suicide Screening: During the past 2 weeks, the patient has not felt down, depressed or hopeless. During the past 2 weeks, the patient has not felt little interest or pleasure in doing things. He has no thoughts of harming self. He has not had thoughts of harming others. Procedure or Sedation Areas: patient has not had alcohol, recreational drugs, or prescription drugs for non-medical reasons this morning. Nutrition Screening: In the past month, there was not a day when I or anyone in my family went hungry because there was not enough food. Patient Education: The patient denies that they or the person with them has problems with hearing, speaking, seeing, moving around or learning The patient is comfortable filling out medical forms. Tobacco Screening: HOMERO does not use tobacco. Active Problems A-fib (427.31) (I48.91) Hypertension, unspecified type (401.9) (I10) Sleep apnea, unspecified type (780.57) (G47.30) Current Meds Dofetilide 500 MCG Oral Capsule; TAKE 1 CAPSULE Every twelve hours; Therapy: 10Aug2017 to (Evaluate:10Nov2018) Requested for: 17Nov2017; Last Rx:15Nov2017 Ordered Rx By: Marnie Traylor; Dispense: 90 Days ; #:180 Capsule; Refill: 3;For: A-fib; ISIDRO = N; Verified Transmission to [facility] 1448 Eliquis 5 MG Oral Tablet; TAKE 1 TABLET Every twelve hours; Therapy: 27Jul2017 to (Evaluate:22Jul2018) Recorded Dispense: 30 Days ; #:60 Tablet; Refill: 11;For: A-fib; ISIDRO = N; Record; Last Updated By: Wilda Pappas; 07/27/2017 11:48:40 AM Cialis 20 MG Oral Tablet; TAKE 1 TABLET DAILY 1 HOUR BEFORE NEEDED; Therapy: 27Jul2017 to Recorded Dispense: 0 Days ; #: Sufficient Tablet; Refill: 0;For: Health Maintenance; ISIDRO = N; Record; Last Updated By: Wilda Pappas; 07/27/2017 11:48:40 AM Clobetasol Propionate 0.05 % External Ointment; Therapy: 07Jul2016 to Recorded Rx By: TAMICA; Dispense: 20 Days ; #:60 GM; Refill: 0;For: Health Maintenance; ISIDRO = N; Record; Last Updated By: Wilda Pappas; 09/28/2017 3:13:26 PM HydrOXYzine HCl - 25 MG Oral Tablet; TAKE 1 TABLET 3 TIMES DAILY NEEDED; Therapy: 27Jul2017 to Recorded Dispense: 0 Days ; #: Sufficient Tablet; Refill: 0;For: Health Maintenance; ISIDRO = N; Record; Last Updated By: Wilda Pappas; 07/27/2017 11:48:40 AM Lisinopril 10 MG Oral Tablet; TAKE 1 TABLET DAILY FOR BLOOD PRESSURE; Therapy: 27Jul2017 to (Evaluate:22Jul2018) Recorded Dispense: 30 Days ; #:30 Tablet; Refill: 11;For: Hypertension, unspecified type; ISIDRO = N; Record; Last Updated By: Wilda Pappas; 11/30/2017 3:33:41 PM Allergies propafenone Recorded By: Marnie Traylor; 11/30/2017 3:33:41 PM Review of Systems Constitutional: not feeling tired. Cardiovascular: as noted in HPI and no intermittent leg claudication. Respiratory: no cough and no shortness of breath. Gastrointestinal: no change in bowel habits and no blood in stools. Integumentary: itching, but no skin rashes. Neurological: no seizures and no frequent falls. Vitals Vital Signs Recorded: 30Nov2017 02:14PM Heart Rate64 Bznekzdq337, RUE, Sitting Gxdnqrqoh38, RUE, Sitting Height6 ft 3 in Genulu837 lb BMI Ugsgippcjn39.25 BSA Calculated2.38 O2 Drijybtufv84, RA Physical Exam Constitutional: . rash improved. Neck: and no thyromegaly . left swelling no stridor. Pulmonary: no increased work of breathing or signs of respiratory distress and lungs clear to auscultation. Cardiovascular: JVP was normal, carotid pulses 2+ bilaterally with no bruit , no thrills , regular rhythm, normal S1 and S2, no murmurs , pedal pulses 2+ bilaterally and . 1+. Skin: skin warm and dry, normal skin turgor . Psychiatric judgment and insight is normal , oriented to person, place and time and normal mood and affect . Results/Data ECG: NSR 71 bpm occ PAC QTc 526 msec Scores and Scales [id number] 1. Heart Failure or EF is less than or equal to 35%? No (0 pt) 2. Hypertension? Yes (1 pt) 3. Age? Between 65-74 (1 pt) 4. Diabetes? No (0 pt) 5. Stroke, TIA, or Systemic Emboli? No (0 pt) 6. Vascular Disease? No (0 pt) 7. Gender? Male (0 pt) Total Risk Score: The ORV1CP9-VKTq Score is 2 which corresponds to High Risk. Diagnoses/Problems A-fib (427.31) (I48.91) Hypertension, unspecified type (401.9) (I10) Impressions He is doing well on the dofetilide. The rash is much better off of the propafenone and the metoprolol. We were discussing if it could be the Eliquis. Orders Hypertension, unspecified type Stop: Lisinopril 10 MG Oral Tablet Dispense: 30 Days ; #:30 Tablet; Refill: 11;For: Hypertension, unspecified type; ISIDRO = N; Record; Last Updated By: Marnie Traylor; 11/30/2017 3:33:41 PM Start: Furosemide 40 MG Oral Tablet; TAKE 1 TABLET Daily PRN Weight gain Rx By: Marnie Traylor; Dispense: 30 Days ; #:30 Tablet; Refill: 1;For: Hypertension, unspecified type; ISIDRO = N; Sent To: [facility] 1442 Patient Instructions YOu were seen today for follow up of your atrial fibrillation. The heart rhythm looks very good - still in normal rhythm today. You can try claritin or zyrtec for allergy symptoms. We can try to switch from Eliquis to another anticoagulant. Stop the lisinopril- follow the blood pressure. Take the lasix 40 mg one a day for 3-5 days. Eat banana and potato to replace the potassium. Return in 6 months. If you have any questions please do not hesitate to contact my office. Sincerely, End of Encounter Meds Cialis 20 MG Oral Tablet; TAKE 1 TABLET DAILY 1 HOUR BEFORE NEEDED; Therapy: 22Oiw4629 to Recorded Clobetasol Propionate 0.05 % External Ointment; Therapy: 94Vpz5678 to Recorded Dofetilide 500 MCG Oral Capsule; TAKE 1 CAPSULE Every twelve hours; Therapy: 62Lfi6045 to (Evaluate:20Shx5933) Requested for: 84Roa5134; Last Rx:[id number] Ordered Eliquis 5 MG Oral Tablet; TAKE 1 TABLET Every twelve hours; Therapy: 70Ksa5941 to (Evaluate:74Ebq4056) Recorded Furosemide 40 MG Oral Tablet; TAKE 1 TABLET Daily PRN Weight gain; Therapy: 60Eur6750 to (Evaluate:61Ovm1441); Last Rx:[id number] Ordered HydrOXYzine HCl - 25 MG Oral Tablet; TAKE 1 TABLET 3 TIMES DAILY NEEDED; Therapy: 52Ldz1998 to Recorded Signatures Electronically signed by : Marnie Traylor MD; Nov 30 2017 3:34PM EST (Author) OFFICE VISIT Observed: 09/28/2017 Status: UNK Source: [facility] (CARDIOLOGY) 3:33 PM [facility]PITALS REPOSITORY Chief Complaint HOMERO SPANGLER is being seen for a 8 week follow-up of atrial fibrillation and a medication change. Pleasant 71 yo male returns to clinic status post cardioversion after the initiation of Tikosyn. Patient complaint of not getting quality sleep. Denies palpitations, lightheadedness, syncope, dyspnea, o rthopnea, diaphoresis, N/V and chest pain/discomfort. Sultana Pappas RN History of Present Illness 71 yo was diagnosed with AF in 2015. During a routine physical examination - his doctor noted the atrial fibrillation. He was then referred to [facility] for evaluation. Dr. Abdi initiated on medic ations and he undertook cardioversion and it was successful for 8 months. His symptoms improved significantly. The cardioversion was repeated and propafenone was started- he maintained sinus rhythm for 3 months. In February 2017- the rhythm was atrial flutter he performed another cardioversion in March 2017. The propafenone was continued - metoprolol was increased to 100 mg bid. The cardioversion wa s successful - heart rates were in the 50-60's. This lasted about a week - heart rates have been 100-110 bpm. Symptoms now are fatigue, he has a rash - he has some shortness of breath since April. He is short of breath with any exertion. He denies syncope but does have lightheadedness. Caffeine: iced tea 32 ounce ETOH: None Cigarettes: None Energy drinks - None Patient has noted improvement in his rash since stopping the propafenone but he is still with some dermatitis. He has been checking his pulse rate at home and it has been normal. He was also diagnosed with hypertension at the onset of the AF diagnosis. 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 He is using CPAP. Active Problems A-fib (427.31) (I48.91) Hypertension, unspecified type (401.9) (I10) Sleep apnea, unspecified type (780.57) (G47.30) Current Meds Eliquis 5 MG Oral Tablet; TAKE 1 TABLET Every twelve hours; Therapy: 98Cjk7288 to (Evaluate:17Vfb3975) Recorded Dispense: 30 Days ; #:60 Tablet; Refill: 11;For: A-fib; ISIDRO = N; Record; Last Updated By: Wilda Pappas; 07/27/2017 11:48:40 AM Metoprolol Succinate ER 50 MG Oral Tablet Extended Release 24 Hour; TAKE 1 TABLET Every twelve hours BY MOUTH; Therapy: 27Jul2017 to (Evaluate:06Apm3831) Recorded Dispense: 90 Days ; #:180 Tablet Extended Release 24 Hour; Refill: 3;For: A-fib; ISIDRO = N; Record; Last Updated By: Wilda Pappas; 09/28/2017 3:33:10 PM Cialis 20 MG Oral Tablet; TAKE 1 TABLET DAILY 1 HOUR BEFORE NEEDED; Therapy: 27Jul2017 to Recorded Dispense: 0 Days ; #: Sufficient Tablet; Refill: 0;For: Health Maintenance; ISIDRO = N; Record; Last Updated By: Wilda Pappas; 07/27/2017 11:48:40 AM HydrOXYzine HCl - 25 MG Oral Tablet; TAKE 1 TABLET 3 TIMES DAILY NEEDED; Therapy: 27Jul2017 to Recorded Dispense: 0 Days ; #: Sufficient Tablet; Refill: 0;For: Health Maintenance; ISIDRO = N; Record; Last Updated By: Wilda Pappas; 07/27/2017 11:48:40 AM Lisinopril 10 MG Oral Tablet; TAKE 1 TABLET DAILY FOR BLOOD PRESSURE; Therapy: 27Jul2017 to (Evaluate:26Zje0125) Recorded Dispense: 30 Days ; #:30 Tablet; Refill: 11;For: Hypertension, unspecified type; ISIDRO = N; Record; Last Updated By: Wilad Pappas; 07/27/2017 11:48:40 AM Allergies No Known Allergies Recorded By: Wilda Pappas; 07/27/2017 11:43:55 AM Review of Systems Constitutional: not feeling tired. Cardiovascular: as noted in HPI and no intermittent leg claudication. Respiratory: no cough and no shortness of breath. Gastrointestinal: no change in bowel habits and no blood in stools. Integumentary: no skin rashes. Neurological: no seizures and no frequent falls. Vitals Vital Signs Recorded: 28Sep2017 02:54PM Heart Rate55 Olvpokqr237, LUE, Sitting Egcckqgro32, LUE, Sitting Height6 ft 3 in Oipryf455 lb BMI Uwmpgippwf92.25 BSA Calculated2.35 O2 Xoydeoimxn64, RA Pain Scale0/10 Physical Exam Constitutional: alert and in no acute distress. Neck: neck is supple, symmetric, trachea midline, no masses and no thyromegaly . Pulmonary: no increased work of breathing or signs of respiratory distress and lungs clear to auscultation. Cardiovascular: JVP was normal, carotid pulses 2+ bilaterally with no bruit , no thrills , regular rhythm, normal S1 and S2, no murmurs , pedal pulses 2+ bilaterally and no edema . Skin: skin warm and dry, normal skin turgor . Psychiatric judgment and insight is normal , oriented to person, place and time and normal mood and affect . Results/Data ECG: NSR 55 bpm QTc 550 msec (RBBB) Scores and Scales NIB1SN2-AQGb 1. Heart Failure or EF is less than or equal to 35%? No (0 pt) 2. Hypertension? Yes (1 pt) 3. Age? Between 65-74 (1 pt) 4. Diabetes? No (0 pt) 5. Stroke, TIA, or Systemic Emboli? No (0 pt) 6. Vascular Disease? No (0 pt) 7. Gender? Male (0 pt) Total Risk Score: The WLW7UH1-LROz Score is 2 which corresponds to High Risk. Diagnoses/Problems A-fib (427.31) (I48.91) Impressions Patient back in normal rhythm and feeling significantly better. He is still with some dermatitis. The rash is improved off of propafenone but I am concerned that it is perhaps related to the metoprolol. We will cut the metoprolol in 1/2 and observe. After 4 weeks we will discontinue and he will return in 8 weeks. Orders A-fib Stop: Metoprolol Succinate ER 50 MG Oral Tablet Extended Release 24 Hour Dispense: 90 Days ; #:180 Tablet Extended Release 24 Hour; Refill: 3;For: A-fib; ISIDRO = N; Record; Last Updated By: Marnie Traylor; 09/28/2017 3:33:10 PM Start: Metoprolol Succinate ER 50 MG Oral Tablet Extended Release 24 Hour; TAKE 0.5 TABLET Daily Rx By: Marnie Traylor; Dispense: 30 Days ; #:15 Tablet Extended Release 24 Hour; Refill: 11;For: A-fib; ISIDRO = N; Record Patient Instructions You were seen today for atrial fibrillation. The heart rhythm is normal! Th ECG looks very good. Please cut the metoprolol in 03/14 so you will take 25 mg once a day for 4 weeks. Then you will discontinue the metoprolol. REturn to clinic in 8 weeks. Hopefully the rash will resolve. End of Encounter Meds Cialis 20 MG Oral Tablet; TAKE 1 TABLET DAILY 1 HOUR BEFORE NEEDED; Therapy: [id number] to Recorded Eliquis 5 MG Oral Tablet; TAKE 1 TABLET Every twelve hours; Therapy: [id number] to (Evaluate:[id number]) Recorded HydrOXYzine HCl - 25 MG Oral Tablet; TAKE 1 TABLET 3 TIMES DAILY NEEDED; Therapy: [id number] to Recorded Lisinopril 10 MG Oral Tablet; TAKE 1 TABLET DAILY FOR BLOOD PRESSURE; Therapy: [id number] to (Evaluate:[id number]) Recorded Metoprolol Succinate ER 50 MG Oral Tablet Extended Release 24 Hour; TAKE 0.5 TABLET Daily; Therapy: [id number] to (Evaluate:46Syp9784); Last Rx:[id number] Ordered Signatures Electronically signed by : Marnie Traylor MD; Sep 28 2017 3:33PM EST (Author) DISCHARGE SUMMARY Observed: 08/14/2017 Status: COMPLETED Source: [facility] 9:51 AM HOSPITALS REPOSITORY Send Summary: Discharge Summary Providers: Provider RoleProvider Name ? Marnie Jorge ? RobertLoSusan arrieta Note Recipients: Susan Eller MD - [id number] [] Marnie Traylor MD Discharge: Summary: Admission Date: .08-Aug-2017 13:48:00 Discharge Date: 11-Aug-2017 Attending Physician at Discharge: Marnie Traylor Admission Reason: Persistent AF/AFL, elective Tikosyn initiation Final Discharge Diagnoses: AFib Procedures: Date: 10-Aug-2017 09:00:00 Procedure Name: cardioversion Condition at Discharge: Satisfactory Disposition at Discharge: .Home Vital Signs: VSS as assessed by Terry Thomas MD on 08/11/17 Physical Exam: See daily progress note by Terry Thomas MD on 08/11 Hospital Course: 71yo M with AF dx 2016 during routine physical, had eval by Dr Abdi, had several CVs and started on Rythmol. He maintained SR for 3 mos and in 03/30 had successful CV for AFL and metop was increased, SR lasted only 1 week and pt has had fatigue, LH, ARELLANO, and rash since 04/30. Pt saw Dr Traylor for initial eval on 07/27/17 and Tikosyn was recommended. Sx with AF are fatigue, ARELLANO, and LH with rapid change in position though recently pt has been able to do more physical activity without ARELLANO since stopping Rythmol. Note pre-CV KAI 03/30 showed EF 50% and basal inferior HK. Once SR is restored will re-eval EF and decide if ischemia eval will be pursued. Rythmol was dc'd on day of visit 07/27/17 and rash began to resolve soon after this. CHADSVASC=2 (HTN, age). Pt has been on Eliquis and denies any missed doses in the last 30 days. He presented for elective Tikosyn initiation. Pt denied CP, syncope, PND, orthopnea but admitted to chronic BLE edema at end of the day that is gone by morning. Pt presented in controlled AFL. Pt was admitted to [place] [address], started on Tikosyn 500mcg every 12 hours and was maintained on continuous telemetry. Eliquis was continued. EKGs were obtained two hours after each dose of Tikosyn for QTc monitoring. Magnesium and potassium levels were monitored throughout the hospitalization and were repleted as necessary. QTc remained stable through 6 doses of Tikosyn. While in AFL, HR slowed at times with one 2.4 sec pause overnight (used home CPAP during stay) thus home metoprolol was decreased. Pt underwent DCCV on 08/10 with single 120J shock to SR and remained in SR. Tikosyn education guide was reviewed w/ pt. Reminded pt not to take 2 doses if one is missed, not to change administration times more than a 1 hour adjustment per day, and importance of not missing doses. Pt is aware of importance of informing all providers of current accurate medication list due to potential drug-drug interactions. All questions answered. Upon discharge, a 7-day Tikosyn supply from the outpt pharmacy was provided to pt, and another prescription was called into pt's local pharmacy. Pt was seen and evaluated by Terry Thomas MD and Dr Traylor on day of discharge and was deemed stable and appropriate for discharge. Pt was discharged in satisfactory condition and will f/u with Dr Traylor on 09/28/17 with EKG. *Pt will need BMP q3-6 months with PCP to evaluate renal function while on Tikosyn. MED CHANGES: -dofetilide (Tikosyn) 500mcg q12h -Metoprolol succinate decreased to 50mg daily Discharge Information: and Continuing Care: Discharge Instructions: Activity: activity as tolerated. May shower.. May not drive for 1 day(s). due to sedation for cardioversion on 08/10/17 Additional Orders: Additional Instructions: IF YOU MISS A DOSE OF TIKOSYN, DO NOT TRY TO MAKE UP THE DOSE. NEVER TAKE 2 DOSES AT THE SAME TIME. *You should have bloodwork to check kidney function every 3-6 months with your primary provider or primary perforating machine operator while on Tikosyn. *DO NOT take any herbs or supplements without first discussing with your provider. *You must tell any provider that treats you that you are on Tikosyn (due to potential for drug-drug interactions). Keep an up-to-date medication list in your wallet (in addition to any list you keep in your phone). Follow Up Appointments: Follow-Up Appointment 01: Physician/Dept/Service: Marnie Traylor MD Reason for Referral: Tikosyn follow-up Scheduled Date/Time: 28-Sep-2017 02:30 Location: [facility] office Discharge Medications: Home Medication lisinopril 10 mg oral tablet - 1 tab(s) orally once a day Eliquis 5 mg oral tablet - 1 tab(s) orally every 12 hours metoprolol succinate 50 mg oral tablet, extended release - 1 tab(s) orally once a day dofetilide 500 mcg oral capsule - 1 cap(s) orally every 12 hours PRN Medication Cialis 20 mg oral tablet - 1 tab(s) orally once a day, As Needed 1 hour before needed Lab Results - Pending: None Radiology Results - Pending: None Signature/Cosignature/Attestation: Comments/ Additional Findings Patient seen day of discharge to finalize instructions. He will see me in the office in September and we will set up the date/time after discharge. Electronic Signatures: Napoleon Paredes (PAC) (Signed 14-Aug-2017 10:04) Authored: Send Summary, Summary Content, Ongoing Care Marnie Traylor) (Signed 28-Aug-2017 08:59) Authored: Send Summary, Summary Content, Ongoing Care, Signature/Cosignature/Attestation Co-Signer: Send Summary, Summary Content, Ongoing Care Last Updated: 28-Aug-2017 08:59 by Marnie Traylor) DAILY PROGRESS Observed: 08/11/2017 Status: COMPLETED Source: [facility] NOTE-CARDIOLOGY , EP 2:17 PM HOSPITALS REPOSITORY Service: Cardiology EP Subjective Data: HOMERO SPANGLER is a 71 year old Male who is Hospital Day # 4. No new sxs, ECG looks stable, QTc ok. No arrhythmias on telemetry. Objective Data: Objective Information: T PRBPSpO2 [id number]/7097% Date/Time08/11 11: 11: 11: 11: 11:22 Range(36.2C - 36.7C ) (54 - 63 ) (18 - 20 ) (113 - 124 )/ (63 - 73 ) (96% - 98% ) Physical Exam: Constitutional: A+O x 3, no distress Eyes: Anicteric Head/Neck: NC/AT Respiratory/Thorax: CTAB Cardiovascular: Regular Gastrointestinal: soft, NT/ND +bs Extremities: no LE edema Psychological: Appropriate speech and affect. Skin: Warm and dry Medication: Medications: CARDIOVASCULAR AGENTS: 1. Lisinopril: 10 mg Oral Daily 2. Dofetilide: 500 microgram(s) Oral Every 12 Hours 3. Metoprolol Succinate Extended Release: 50 mg Oral Daily CENTRAL NERVOUS SYSTEM AGENTS: 1. Acetaminophen: 650 mg Oral Every 4 Hours PRN COAGULATION MODIFIERS: 1. Apixaban: 5 mg Oral Every 12 Hours Recent Lab Results: Results: I have reviewed these laboratory results: Basic Metabolic Panel 11-Aug-2017 04:27:00 ResultValue Glucose, Serum 109 H NA 140 K 4.7 CL 111 H Bicarbonate, Serum 21 Anion Gap, Serum 13 BUN 29 H CREAT 1.25 GFR-Non 57 A GFR- 69 Calcium, Serum 8.7 Assessment and Plan: Assessment: -AF and AFL -EF 50% -Regional WMA (basal inf HK) on outside echo -HTN -LAZ>CPAP -goiter s/p partial thyroidectomy '05 PLAN: Discharge today -Cont Tikosyn 500mcg q12h -Cont Eliquis -Cont rest of home meds-->metop succinate changed to 50mg daily -Pt was given a 3-page Tikosyn education guide and is able to read-->multiple questions from pt and , all answered. Signature/Cosignature/Attestation: Attending AttestationI saw and evaluated the patient. I personally obtained the hahn and critical portions of the history and physical exam or was physically present for hahn and critical portions performed by the resident/fellow. I reviewed the resident/fellow?s documentation and discussed the patient with the resident/fellow. I agree with the resident/fellow?s medical decision making as documented in the resident/fellow?s note with the exception/addition of the following: I personally evaluated the patient (as noted in the above attestation) on 11-Aug-2017 Comments/ Additional Findings Patient seen and is maintaining sinus rhythm following cardioversion. QTc is less than 500 msec. His rash is resolved. He will followup with me September 28. Electronic Signatures: Terry Thomas (Fellow)) (Signed 11-Aug-2017 14:21) Authored: Service, Subjective Data, Objective Data, Assessment and Plan, Signature/Cosignature/Attestation Marnie Traylor) (Signed 11-Aug-2017 23:12) Authored: Signature/Cosignature/Attestation Co-Signer: Service, Subjective Data, Objective Data, Assessment and Plan, Signature/Cosignature/Attestation Last Updated: 11-Aug-2017 23:12 by Marnie Traylor) MAGNESIUM Collected: 08/11/2017 Status: F Source: [facility] 4:27 [facility] REPOSITORY TYPE CODE TESTS RESULT OUT OF REFERENCE UNITS RANGE LAB MG(LOINC) 1.60 - 2.40 mg/dL MAGNESIUM 1.97 Performed By: #### MG #### [facility] [address] [place] [address] BASIC METABOLIC PANEL Collected: 08/11/2017 Status: F Source: [place] 4:27 AM [facility] REPOSITORY TYPE CODE TESTS RESULT OUT OF RANGE REFERENCE UNITS LAB GLU(LOINC) 74 - 99 mg/dL High GLUCOSE 109 LAB SOD(LOINC) 136 - 145 mmol/L SODIUM 140 LAB K(LOINC) 3.5 - 5.3 mmol/L POTASSIUM 4.7 LAB CHLOR(LOIN 98 - 107 mmol/L C) High CHLORIDE 111 LAB BIC(LOINC) 21 - 32 mmol/L BICARBONATE 21 LAB ANGAP(LOIN 10 - 20 mmol/L C) ANION GAP 13 LAB UREA(LOINC 6 - 23 mg/dL ) High UREA NITROGEN 29 LAB CREA(LOINC 0.50 - 1.30 mg/dL ) CREATININE 1.25 LAB GFRFN(LOIN >60 mL/min/1.7 C) 3m2 GFR-NON Abnormal AM. 57 LAB GFRAA(LOIN >60 mL/min/1.7 C) 3m2 GFR- AM. 69 Result Comment: CALCULATIONS OF ESTIMATED GFR ARE PERFORMED USING THE MDRD STUDY EQUATION FOR THE IDMS-TRACEABLE CREATININE METHODS. CLIN CHEM 2007;53:766-72 LAB CA(LOINC) 8.6 - 10.6 mg/dL CALCIUM 8.7 Performed By: #### BMP #### [facility] [address] [place] [address] DAILY PROGRESS Observed: 08/10/2017 Status: COMPLETED Source: UNIVERSITY NOTE-EP 9:16 AM HOSPITALS REPOSITORY Service: EP Subjective Data: HOMERO SPANGLER is a 71 year old Male who is Hospital Day # 3. Additional Information: Pt examined at 8:25AM on [place] 5 prior to CV and tele reviewed. Feels well, denies CP/dyspnea/LH/palps. Is NPO Objective Data: Objective Information: T PRBPSpO2 [id number]/7396% Date/Time08/10 7: 7: 7: 7: 7:29 Range(36C - 36.7C ) (66 - 103 ) (16 - 18 ) (97 - 122 )/ (61 - 86 ) (92% - 99% ) As of 09-Aug-2017 23:13:00, patient is on 3 L/min of oxygen via nasal cannula. Pain with Activity reported at 08/09 23:00: 0 Pain at Rest reported at 08/10 7:29: 0 Tele reviewed: AFL 70s-100s, rare PVC, no runs EKG post 3rd dose 08/09/17 23:31--AFL 83s w/ variable conduction, cRBBB (QRSD 148ms), absolute QT ~420ms (QTc inaccurate due to irregularity) EKG post 4th dose (post CV): Physical Exam: Constitutional: A+O x 3, no distress Eyes: Anicteric Head/Neck: NC/AT Respiratory/Thorax: CTAB Cardiovascular: irreg irreg (pre-CV) Gastrointestinal: soft, NT/ND +bs Extremities: no LE edema Psychological: Appropriate speech and affect. Skin: Warm and dry Medication: Medications: Continuous Medications No continuous medications are active Scheduled Medications 1. Apixaban: 5 mg Oral Every 12 Hours 2. Dofetilide: 500 microgram(s) Oral Every 12 Hours 3. Lisinopril: 10 mg Oral Daily PRN Medications 1. Acetaminophen: 650 mg Oral Every 4 Hours Currently Suspended Medications 1. Metoprolol Tartrate: 50 mg Oral Every 12 Hours Recent Lab Results: Results: I have reviewed these laboratory results: Basic Metabolic Panel Trending View [id number] 04:07:00 09-Aug-2017 04:41:00 08-Aug-2017 14:21:00 Glucose, Hktfj092 H 95 104 H NA140 139 143 K4.5 4.5 4.3 CL109 H 110 H 112 H Bicarbonate, Serum23 21 22 Anion Gap, Serum13 13 13 BUN24 H 23 28 H CREAT1.23 1.14 1.24 GFR-Non Rfzyeueg78 A >60 58 A GFR- Kmyodgfn21 >60 70 Calcium, Serum8.6 8.5 L 9.3 Magnesium, Serum Trending View [id number] 04:07:00 09-Aug-2017 04:41:00 08-Aug-2017 14:21:00 Magnesium, Serum2.02 1.91 1.94 Complete Blood Count 08-Aug-2017 14:21:00 ResultValue White Blood Cell Count 7.7 Nucleated Erythrocyte Count 0.0 Red Blood Cell Count 5.25 HGB 15.2 HCT 44.8 MCV 85 MCHC 33.9 PLT 168 RDW-CV 14.4 Assessment and Plan: Assessment: -AF and AFL -EF 50% -Regional WMA (basal inf HK) on outside echo -cRBBB -HTN -LAZ>CPAP -goiter s/p partial thyroidectomy '05 PLAN: Pt was seen/evaluated by Dr Traylor prior to CV-->single 120J shock to SB 50s, QTc acceptable in SR. Will further decrease metop tartrate to 25mg BID tomngith and switch to succinate 50mg daily from tomorrow. -Cont Tikosyn 500mcg q12h -Continuous tele / QTc monitoring -EKG 2hrs post each dose Tik -Replete lytes PRN (K>4, Mg>2) -Cont Eliquis -Cont rest of home meds-->metop succinate changed to tartrate to allow up/down titration -Anticipate dc home tomorrow if QTc remains stable post 6th dose Cards fellow Terry Thomas MD will see pt tomorrow (EP consult pgr [phone]) *HVI team (# [id number]) covers overnight, signout will be given LENI Devlin PA-C, [facility] Cardiac Electrophysiology Signature/Cosignature/Attestation: Comments/ Additional Findings Patient seen on rounds today. He underwent successful cardioverseion earlier today. He is awake and alert. He is remaining in sinus rhythm. AGree with plan as outlined for discharge tomorrow if QTc acceptable. He is feeling better in sinus rhythm. We will determine metoprolol dose for homegoing. Electronic Signatures: Napoleon Paredes (PAC) (Signed 10-Aug-2017 09:26) Authored: Service, Subjective Data, Objective Data, Assessment and Plan Marnie Traylor) (Signed 10-Aug-2017 21:37) Authored: Signature/Cosignature/Attestation Co-Signer: Service, Subjective Data, Objective Data, Assessment and Plan Last Updated: 10-Aug-2017 21:37 by Marnie Traylor) POST PROCEDURE NOTE - NOT Observed: 08/10/2017 Status: COMPLETED Source: [place] IN OR-CARDIOVERSION 9:00 AM HOSPITALS REPOSITORY Pre-procedure Verification and Time Out: Procedure location: procedure area Pre-procedure verification - Procedure Area: Pre-procedure verification completed - includes patient identity, site/laterality, procedure, consent, relevant documentation completed, relevant diagnostic images labeled and displayed, relevant diagnostic tests results available, implants and/or special equipment needed, and required blood and/or blood products available. Pre-procedure verification date -Procedure Area: 10-Aug-2017 Pre-procedure verification time -Procedure Area: 09:00 Time-Out - Final Verification: Time Out completed - Final verification includes patient identity, site/laterality, and procedure verified by entire procedure team Time-Out - Final Verification Date: 10-Aug-2017 Time-Out - Final Verification Time: 09:01 General Information: Date/Time of Procedure: 10-Aug-2017 09:01 Post-Procedure Diagnosis: same Procedure Name: cardioversion Findings: grossly normal anatomy Procedure performed by: fl Aircraft Rigging And Controls Mechanic(s): none Estimated Blood Loss (mL): none Specimen: no Indication(s): atrial fibrillation Informed Consent: written consent obtained Procedure Details: Procedure Details: Under deep sedation per anesthesia, 120 mg propofol in divided doses. 120 J A/P synchronoulsy was delivered resulting in SR. Successful cardioversion of atrial fibrillation. Tolerance: good Complications: None Signature/Cosignature/Attestation: Attending AttestationI was present for the entire procedure Electronic Signatures: Marnie Traylor) (Signed 10-Aug-2017 09:02) Authored: Pre-procedure Verification and Time Out, General Information, Procedure Details, Signature/Cosignature/Attestation Last Updated: 10-Aug-2017 09:02 by Marnie Traylor) MAGNESIUM Collected: 08/10/2017 Status: F Source: [facility] 4:07 AM HOSPITALS REPOSITORY TYPE CODE TESTS RESULT OUT OF REFERENCE UNITS RANGE LAB MG(LOINC) 1.60 - 2.40 mg/dL MAGNESIUM 2.02 Performed By: #### MG #### [facility] [address] [place] [address] BASIC METABOLIC PANEL Collected: 08/10/2017 Status: F Source: [place] 4:07 AM HOSPITALS REPOSITORY TYPE CODE TESTS RESULT OUT OF RANGE REFERENCE UNITS LAB GLU(LOINC) 74 - 99 mg/dL High GLUCOSE 107 LAB SOD(LOINC) 136 - 145 mmol/L SODIUM 140 LAB K(LOINC) 3.5 - 5.3 mmol/L POTASSIUM 4.5 LAB CHLOR(LOIN 98 - 107 mmol/L C) High CHLORIDE 109 LAB BIC(LOINC) 21 - 32 mmol/L BICARBONATE 23 LAB ANGAP(LOIN 10 - 20 mmol/L C) ANION GAP 13 LAB UREA(LOINC 6 - 23 mg/dL ) High UREA NITROGEN 24 LAB CREA(LOINC 0.50 - 1.30 mg/dL ) CREATININE 1.23 LAB GFRFN(LOIN >60 mL/min/1.7 C) 3m2 GFR-NON Abnormal AM. 58 LAB GFRAA(LOIN >60 mL/min/1.7 C) 3m2 GFR- AM. 70 Result Comment: CALCULATIONS OF ESTIMATED GFR ARE PERFORMED USING THE MDRD STUDY EQUATION FOR THE IDMS-TRACEABLE CREATININE METHODS. CLIN CHEM 2007;53:766-72 LAB CA(LOINC) 8.6 - 10.6 mg/dL CALCIUM 8.6 Performed By: #### BMP #### [facility] [address] [place] [address] DAILY PROGRESS Observed: 08/09/2017 Status: COMPLETED Source: UNIVERSITY NOTE-EP 10:59 AM HOSPITALS REPOSITORY Service: EP Subjective Data: HOMERO SPANGLER is a 71 year old Male who is Hospital Day # 2. Additional Information: Pt examined at 9:25AM and tele reviewed. Had hot flash at 2am, o/w no c/o. Denies CP/dyspnea/LH/palps. at bedside. Objective Data: Objective Information: T PRBPSpO2 Value36.00212807/8798% Date/Time08/09 7: 7: 7: 7: 7:45 Range(36C - 36.3C ) (78 - 84 ) (18 - 18 ) (123 - 139 )/ (73 - 90 ) (96% - 98% ) Pain with Activity reported at 08/09 9:00: 0 Pain at Rest reported at 08/09 9:00: [address] Traylor also: AFL 70s-100s, 2.4 sec pause o/n, asymptomatic, 3 bt aberrant AF (after long-short cycle); appears is trying to convert to SR EKG post 1st dose 08/08/17 23:13--AFL 80s, variable conduction, cRBBB, absolute QT less than 400ms (QTc inaccurate due to irreg) EKG post 2nd dose 08/09/17 10:48AM--AFL, variable conduction 80s, cRBBB, absolute QT 400ms (QTc inaccurate due to irreg) Physical Exam: Constitutional: A+O x 3, no distress Eyes: Anicteric Head/Neck: NC/AT Respiratory/Thorax: CTAB Cardiovascular: Irreg irreg Gastrointestinal: soft, NT/ND +bs Extremities: no LE edema Psychological: Appropriate speech and affect. Skin: Warm and dry Medication: Medications: Continuous Medications No continuous medications are active Scheduled Medications 1. Apixaban: 5 mg Oral Every 12 Hours 2. Dofetilide: 500 microgram(s) Oral Every 12 Hours 3. Lisinopril: 10 mg Oral Daily 4. Metoprolol Tartrate: 50 mg Oral Every 12 Hours PRN Medications 1. Acetaminophen: 650 mg Oral Every 4 Hours Recent Lab Results: Results: I have reviewed these laboratory results: Basic Metabolic Panel Trending View [id number] 04:41:00 08-Aug-2017 14:21:00 Glucose, Serum95 104 H NA139 143 K4.5 4.3 CL110 H 112 H Bicarbonate, Serum21 22 Anion Gap, Serum13 13 BUN23 28 H CREAT1.14 1.24 GFR-Non >60 58 A GFR->60 70 Calcium, Serum8.5 L 9.3 Magnesium, Serum Trending View [id number] 04:41:00 08-Aug-2017 14:21:00 Magnesium, Serum1.91 1.94 Complete Blood Count 08-Aug-2017 14:21:00 ResultValue White Blood Cell Count 7.7 Nucleated Erythrocyte Count 0.0 Red Blood Cell Count 5.25 HGB 15.2 HCT 44.8 MCV 85 MCHC 33.9 PLT 168 RDW-CV 14.4 Assessment and Plan: Assessment: -AF and AFL -EF 50% -Regional WMA (basal inf HK) on outside echo -HTN -LAZ>CPAP -goiter s/p partial thyroidectomy '05 PLAN: Pt was seen/evaluated by Dr Traylor today also, EKGs and tele reviewed. Will decrease home metop to 50 BID for nocturnal bradycardia/short pause (using CPAP here as at home). For CV tomorrow, will HOLD metop in AM 08/10 to avoid post CV bradycardia. -Cont Tikosyn 500mcg q12h -Continuous tele / QTc monitoring -EKG 2hrs post each dose -Replete lytes PRN (K>4, Mg>2)--repleting Mg today -Cont Eliquis -Cont rest of home meds-->metop succinate changed to tartrate to allow up/down titration -DCCV tomorrow 08/10, NPO past MN -Pt was given a 3-page Tikosyn education guide and is able to read-->multiple questions from pt and , all answered. *HVI team (# [id number]) covers overnight, signout will be given LENI Devlin PA-C, [facility] Cardiac Electrophysiology Signature/Cosignature/Attestation: Attending Only - Shared Visit with Advanced Practice ProviderThis is a shared visit. I have reviewed the Advanced Practice Provider?s encounter note, approve the Advanced Practice Provider?s documentation, and provide the following additional information from my personal encounter. Comments/ Additional Findings Patient seen on rounds this am. AGree with examination as documented. Patient is euvolemic on examination. Telemetry shows continued AF with slowing of the ventricular rates. AGree with plan to decrease the metoprolol and will hold tomorrow am in anticipation of cardioversion. He will ne NPO after midnight. ECG pending but telemetry QT is not prolonged. Electronic Signatures: Napoleon Paredes (PAC) (Signed 09-Aug-2017 13:41) Authored: Service, Subjective Data, Objective Data, Assessment and Plan Marnie Traylor) (Signed 09-Aug-2017 22:33) Authored: Signature/Cosignature/Attestation Co-Signer: Service, Subjective Data, Objective Data, Assessment and Plan Last Updated: 09-Aug-2017 22:33 by Marnie Traylor) BASIC METABOLIC PANEL Collected: 08/09/2017 Status: F Source: [place] 4:41 AM HOSPITALS REPOSITORY TYPE CODE TESTS RESULT OUT OF REFERENCE UNITS RANGE LAB GLU(LOINC) 74 - 99 mg/dL GLUCOSE 95 LAB SOD(LOINC) 136 - 145 mmol/L SODIUM 139 LAB K(LOINC) 3.5 - 5.3 mmol/L POTASSIUM 4.5 LAB CHLOR(LOIN 98 - 107 mmol/L C) CHLORIDE High 110 LAB BIC(LOINC) 21 - 32 mmol/L BICARBONATE 21 LAB ANGAP(LOIN 10 - 20 mmol/L C) ANION GAP 13 LAB UREA(LOINC 6 - 23 mg/dL ) UREA NITROGEN 23 LAB CREA(LOINC 0.50 - 1.30 mg/dL ) CREATININE 1.14 LAB GFRFN(LOIN >60 mL/min/1.7 C) 3m2 GFR-NON AM. >60 LAB GFRAA(LOIN >60 mL/min/1.7 C) 3m2 GFR- AM. >60 Result Comment: CALCULATIONS OF ESTIMATED GFR ARE PERFORMED USING THE MDRD STUDY EQUATION FOR THE IDMS-TRACEABLE CREATININE METHODS. CLIN CHEM 2007;53:766-72 LAB CA(LOINC) 8.6 - 10.6 mg/dL Low CALCIUM 8.5 Performed By: #### BMP #### [facility] [address] [place] [address] MAGNESIUM Collected: 08/09/2017 Status: F Source: [place] 4:41 AM HOSPITALS REPOSITORY TYPE CODE TESTS RESULT OUT OF REFERENCE UNITS RANGE LAB MG(LOINC) 1.60 - 2.40 mg/dL MAGNESIUM 1.91 Performed By: #### MG #### [facility] [address] [place] [address] DISCHARGE PLANNING Observed: 08/08/2017 Status: UNK Source: UNIVERSITY NOTE 4:30 PM HOSPITALS REPOSITORY Discharge Needs Assessment: ? Primary Care PhysicianKymberly Eller - [facility] [place] Adult Information: ? Reason for Admission as Stated by PatientTikosyn initiation ? Primary Support Person During HospitalizationLaura - [phone]; [place] - [place] ? Lives Withspouse ? Financial Concernsnone Patient Learning: ? Factors that Impact Ability to Learnvisual problems(1) Other Learner: ? Learnerspouse; Renuka(1) ? Factors that Impact Ability to Learnvisual problems(1) Other Factors: ? Functional Screen: In the recent/past 2-4 weeks, patient or family have noticedno issues that require a rehabilitation consult at this time(1) Discharge Needs: ? Services Anticipated at Dischargenone ? Anticipated Discharge Dispositionhome ? Type of Equipment Currently in the Homehearing aids, CPAP setting of 3 per patient ? Anticipated Discharge Facility/Level of Care NeedsHome Discharge Planning: Discharge Plannin08/08/17 - 14:34 Discharge Planning Note: 71 yo CM admitted to T5 from home for Tikosyn initiation. Patient lives at home independently with his , Renuka. He ambulates without assistance, no home health or transportation needs anticipated. Patient prefers follow up appointments in the physical metallurgist, any day of the week. He will have enough help at home. Patient phone # [phone] Rona Billy RN 08-10-2017 16:31 Discharge Planning Progress Note - AC 13:25-IMM Letter delivered to patient, patient signed, dated, original to patient, copy to medical record. (Daniel Cr ) 08/11/17 1222 Nursing Note Discharge- Patient lives at home with , has no home care needs. Prescriptions called in and discharge summary reviewed. Patient received starter pack of tikosyn. IV discontinued tip intact. eval discharge patient home today. Conner Lewis RN Electronic Signatures: Conner Lewis (RN) (Signed 11-Aug-2017 12:24) Authored: Discharge Planning Note Rona Billy (NATIVIDAD) (Signed 08-Aug-2017 16:52) Authored: Discharge Planning Note Last Updated: 11-Aug-2017 12:24 by Conner Leiws (RN) References: 1. Data Referenced From Admission Risk Screen - Adult 08/08/2017 3:49 PM PATIENT PROFILE - Observed: 08/08/2017 Status: UNK Source: UNIVERSITY ADULT V2 4:02 PM HOSPITALS REPOSITORY Profile: Initial Info: How to be Addressed Homero Spoken Language Preferred Yi Source of Information patient Are you currently using the Personal Electronic Health Record or [facility] no Are you interested in learning more about MYCARE for the management of your health declined Stated Reason for Admission Tikosyn initiation Primary Contact Name and Number Renuka Smith [phone] Limitations on Visitors/Phone Calls none Temporary Family Living Arrangements (While Hospitalized) none needed Arrived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
--- OUTSIDE RECORDS SUMMARY | 2018-06-03 17:33 | XMS RPT_ITS | Summary of Care ---
:1945 Author Organization [facility] Address [address] [place] [address] Care Team Providers Name Role Phone Susan Eller MD Primary Care Provider Reason for Visit Reason Comments Consult Pt reports A-Fib, Medications verified Encounter Details Date Type Department Care Team Description 07/03/2017 Initial consult [facility] Heart & Masoud Acuna MD Atrial flutter, unspecified type (HCC) (Primary Dx); [facility] [address] Atrial fibrillation, unspecified type (HCC); [address] Cardiomyopathy, unspecified type (HCC) [address] [place] [address] [place], [place] [phone] [address] [phone] Allergies No Known Allergiesas of this encounter Medications Prescription Sig. Disp. Refills Start Date End Date Status ELIQUIS 5 mg Tab Take 5 mg by 06/04/2015 Active mouth 2 (two) times a day . lisinopril Take 10 mg by 09/28/2015 Active (PRINIVIL,ZESTRIL) mouth daily. 10 MG tablet tadalafil (CIALIS) Take 1 (one) 6 tablet 11 10/31/2016 Active 20 MG tablet (20 mg 8 tabletIndications: total) by mouth Erectile as needed for dysfunction due to erectile arterial dysfunction Take insufficiency prior to sexual activity. propafenone Take 325 mg by Active (RYTHMOL SR) 325 mouth 2 (two) MG 12 hr capsule times a day. HYDROXYZINE HCL Take 25 mg by Active ORAL mouth as needed. metoprolol Take 1 (one) 90 tablet 3 04/03/2017 Active succinate tablet (50 mg (TOPROL-XL) 50 MG total) by mouth 24 hr tablet daily. clobetasol Apply topically 04/26/2017 Active (TEMOVATE) 0.05 % as needed. ointment metoprolol Take 1 (one) 180 tablet 1 02/06/2017 Discontinued succinate tablet (50 mg 8 (TOPROL-XL) 50 MG total) by mouth 24 hr daily. tabletIndications: Persistent atrial fibrillation (HCC) as of this encounter Active Problems Problem Noted Date Atrial flutter (HCC) 06/22/2017 Persistent atrial fibrillation (HCC) 03/21/2017 Overview: Added automatically from request for surgery [id number] SVT (supraventricular tachycardia) ([facility]) 03/21/2017 Erectile dysfunction due to arterial insufficiency 10/12/2015 Last Assessment & Plan: Trial of Cialis Atrial fibrillation ([facility]) 06/08/2015 Overview: Probable Afib with RVR since URI in March KAI/CV 10/2015 Last Assessment & Plan: Rate controlled--54 Will cut toprol xl to 50 daily Cardiomyopathy ([facility]) 06/08/2015 Overview: 35-40% Ef with Afib [...] Vital Sign Reading Time Taken Blood Pressure 104/86 07/03/2017 10:57 AM EDT Pulse 76 07/03/2017 10:57 AM EDT Temperature - - Respiratory Rate - - Oxygen Saturation - - Inhaled Oxygen Concentration - - Weight 109.4 kg (241 lb 1.6 oz) 07/03/2017 10:57 AM EDT Height 190.5 cm (6' 3) 07/03/2017 10:57 AM EDT Body Mass Index 30.14 07/03/2017 10:57 AM EDT in this encounter Progress Notes Masoud Acuna MD - 07/03/2017 11:48 AM EDTFormatting of this note may be different from the original. 07/03/17 Dear Susan Eller MD, Homero Kennedy II was seen today for the following problems and my impressions/recommendations are as follows: Problem List Items Addressed This Visit Cardiology Problems Atrial fibrillation (HCC) Relevant Orders CBC Basic Metabolic Panel PT/INR Atrial flutter (HCC) - Primary Cardiomyopathy (HCC) Mr. Kennedy has symptomatic atrial fibrillation and atrial flutter. Attempts to manage him with antiarrhythmic drug to maintain sinus rhythm is been ineffective. I recommended proceeding to catheter ablation and discussed this in detail with he and his (more than 30 minutes [id number] counseling time). The following risks were reviewed with the patient: Bleeding; infection; risk of anesthesia; allergic reaction to medication; vascular injury; cardiac tamponade; damage to pulmonary vein, esophagus, or phrenic nerve; and stroke. The patient and his verbalized understanding of all potential risks involved and has agreed to proceed with the A Fib Ablation procedure. His procedure willbe scheduled in the near future and will keep you updated regarding his progress. Thank you for allowing to participate in the care of your patient. Should you have any questions, please do not hesitate to contact me. Sincerely, Masoud Acuna MD,PhD HPI: Mr. Kennedy was seen today for follow-up of his atrial fibrillation, atrial flutter, and cardiomyopathy. Since undergoing cardioversion in March, Mr. Huitron has had recurrent atrial arrhythmia. He complains of significant dyspnea on exertion, palpitations, and fatigue. He estimates the cardioversion lasted approximately 1 week and then his arrhythmia recurred. He has been compliant with his medications. He has had no chest discomfort, orthopnea, PND, or peripheral edema. He had the onset of atrial fibrillation in 2015. Attempts to suppress the arrhythmia with medical therapy were effective until recently when he developed the atrial flutter. ROS I have reviewed and agree with the ROS performed by the [facility] Patient's Medications New Prescriptions No medications on file Previous Medications CLOBETASOL (TEMOVATE) 0.05 % OINTMENT Apply topically as needed. ELIQUIS 5 MG TAB Take 5 mg by mouth 2 (two) times a day . HYDROXYZINE HCL ORAL Take 25 mg by mouth as needed. LISINOPRIL (PRINIVIL,ZESTRIL) 10 MG TABLET Take 10 mg by mouth daily. METOPROLOL SUCCINATE (TOPROL-XL) 50 MG 24 HR TABLET Take 1 (one) tablet (50 mg total) by mouth daily. PROPAFENONE (RYTHMOL SR) 325 MG 12 HR CAPSULE Take 325 mg by mouth 2 (two) times a day. TADALAFIL (CIALIS) 20 MG TABLET Take 1 (one) tablet (20 mg total) by mouth as needed for erectile dysfunction Take prior to sexual activity. Modified Medications No medications on file Discontinued Medications METOPROLOL SUCCINATE (TOPROL-XL) 50 MG 24 HR TABLET Take 1 (one) tablet (50 mg total) by mouth daily. Vitals: 07/03/17 1057 BP: 104/86 Pulse: 76 Weight: 109.4 kg (241 lb 1.6 oz) Height: 6' 3 Physical Exam Constitutional: He is oriented to person, place, and time. He appears well- developed and well-nourished. HENT: Head: Normocephalic and atraumatic. Nose: Nose normal. Eyes: No scleral icterus. Neck: No JVD present. Cardiovascular: Normal rate. Exam reveals no gallop. No murmur heard. Irregular rhythm, variable S2 Pulmonary/Chest: Effort normal and breath sounds normal. He has no wheezes. He has no rales. Abdominal: Soft. He exhibits no mass. There is no tenderness. There is no guarding. Musculoskeletal: He exhibits no edema. Neurological: He is alert and oriented to person, place, and time. Skin: Skin is warm and dry. Psychiatric: He has a normal mood and affect. His behavior is normal. Thought content normal. Vitals reviewed. EKG: Atrial flutter with controlled ventricular rate, right bundle branch block, left anterior fascicular block. Echo: (KAI, 03/22/17) Conclusions: ?LVEF 50%. The basal inferior wall is hypokinetic. ?Mildly dilated right venticle with mild RV hypokinesis. ?Moderately dilated left atrium. No evidence of DRE thrombus. ?Moderate-severely dilated right atrium. ?Mild aortic regurgitation. ?Mild mitral regurgitation. ?Moderate tricuspid regurgitation. ?Small pericardial effusion. Diagnosis information: Paroxysmal A Fib and A Flutter Procedure Time Requested 6 hours KAI Required? Yes Pre-Procedure Imaging Needed ICE (Intra-Cardiac Echo) and CT Pulmonary Veins Mapping/Ablation NavX and Cryo Anesthesia General --- pt gets nausea/vomiting from anesthesia ----- Anti-Arrhythmia Medications Hold 5 Doses WILFREDO/ARB Medications Hold 1 day prior & day of Beta Tess Medications Continue Tito Esquivel MA - 07/03/2017 10:56 [facility] Constitution: Positive for malaise/fatigue. Negative for diaphoresis, weight gain and weight loss. HENT: Negative for hearing loss, nosebleeds and tinnitus. Eyes: Negative for blurred vision and visual disturbance. Cardiovascular: Positive for dyspnea on exertion, irregular heartbeat, leg swelling and palpitations. Negative for chest pain, claudication, cyanosis, near-syncope, orthopnea, paroxysmal nocturnal dyspnea and syncope. Respiratory: Positive for shortness of breath. Negative for hemoptysis and snoring. Endocrine: Negative for cold intolerance and heat intolerance. Hematologic/Lymphatic: Does not bruise/bleed easily. Skin: Positive for rash. Negative for flushing and poor wound healing. Musculoskeletal: Negative for back pain, muscle weakness and myalgias. Gastrointestinal: Negative for abdominal pain, change in bowel habit, melena, nausea and vomiting. Genitourinary: Positive for decreased libido. Negative for hematuria. Neurological: Negative for loss of balance and numbness. Psychiatric/Behavioral: Negative for memory loss. The patient is not nervous/anxious. in this encounter Plan of Treatment Upcoming Encounters Date Type Specialty Care Team Description 07/07/2017 Appointment Radiology Masoud Acuna MD [address] [address] [phone] Scheduled Tests Name Priority Associated Diagnoses Order Schedule CBC Routine Atrial fibrillation, 1 Occurrences starting unspecified type (HCC) 07/03/2017 until 07/03/2018 Basic Metabolic Panel Routine Atrial fibrillation, 1 Occurrences starting unspecified type (HCC) 07/03/2017 until 07/04/2018 PT/INR Routine Atrial fibrillation, 1 Occurrences starting unspecified type (HCC) 07/03/2017 until 07/04/2018 Health Maintenance Due Date Last Done Comments COLONOSCOPY 1945 HEPATITIS C SCREENING 1945 TETANUS EVERY 10 YR 1945 ZOSTER VACCINE 2007 PNEUMOCOCCAL VACCINE AGE 65+ (1 of 2 - PCV13) 11/11/2012 SEQUENTIAL INFLUENZA VACCINE (#1) 2016 as of this encounter Results ECG 12 Lead (07/03/2017 10:59 AM) Component Value Ref Range Atrial Rate Ventricular Rate P-R Interval QRS Duration Q-T Interval Q-T Interval (corrected) QTC Calculation (Bezet) P Gilberton R Gilberton T Gilberton in this encounter Visit Diagnoses Diagnosis Atrial flutter, unspecified type (HCC) - Primary Atrial fibrillation, unspecified type (HCC) Cardiomyopathy, unspecified type (HCC)
--- OUTSIDE RECORDS SUMMARY | 2018-06-03 17:33 | XMS RPT_ITS | Summary of Care ---
:1945 Author Organization [facility] Address [address] [place] [address] Phone Care Team Providers Name Role Phone Susan Eller MD Primary Care Provider Encounter Details Date Type Department Care Team Description 03/21/2017 Documentation [facility] Heart & Mayur Correia, [facility] [address] [facility] [address] [place] [address] [facility] [phone] [place] [address] Allergies No Known Allergiesas of this [...] Overview: Added automatically from request for surgery [id number] SVT (supraventricular tachycardia) (HCC) 03/21/2017 Erectile dysfunction [...] file as of this encounter Progress Notes Mayur Correia MD - 03/21/2017 1:23 PM ESTFormatting of this note may be different from the original. HISTORY AND PHYSICAL Patient Name: Homero Kennedy II Admit Date: MR #: [id number] : 1945 Physicians: Susan Eller MD (Family); No ref. provider found (Referring) Assessment and Plan SVT-- slow aflutter vs Reentrant- Plan KAI/CV and then consider EP evalfor possible ablation Portions of this note utilized [employer] dictation software, please excuse any typographical or grammatical errors History of Present Illness: Pt being seen for Problem Svt (Supraventricular Tachycardia) (Hcc) Homero Kennedy is a 71 y.o. y/o male presenting with c/o feeling bad and found to have SVT- slow aflutter or reentarnt Has h/o very Sx'ic PAF and has had 3 CV- currently now on Propafenone 325 SR BID EKG: History: Past Medical History: Diagnosis Date ??? [...] times a day . 06/04/15 Historical Provider, lisinopril (PRINIVIL,ZESTRIL) 10 MG tablet [...] affect. Laboratory and Additional Data Reviewed: Laboratory 03/21/17 1:26 PM Cardiology 03/21/17 1:26 PM Medications 03/21/17 1:26 PM Transcriptions 03/21/17 1:26 PM Invalid input(s): CO2 ? in this encounter Plan of Treatment Upcoming Encounters Date Type Specialty Care Team Description 03/22/2017 Hospital Encounter Masoud Acuna MD Persistent atrial [address] [facility] fibrillation (HCC) [address] [place] [address] [phone] 03/22/2017 Hospital Encounter Cardiology Masoud Acuna MD [address] [facility] [address] [place] [address] [phone] Balwinder Saini MD [address] [address] 03/22/2017 Appointment Cardiology Masoud Acuna MD [address] [facility] [address] [place] [address] Health Maintenance Due Date Last Done Comments COLONOSCOPY 1945 HEPATITIS C SCREENING 1945 TETANUS EVERY 10 YR 1945 ZOSTER VACCINE 2007 PNEUMOCOCCAL VACCINE AGE 65+ (1 of 2 - PCV13) 11/11/2012 SEQUENTIAL INFLUENZA VACCINE (#1) 2016 as of this encounter Insurance Payer Benefit Plan / Group Subscriber ID Type Phone Address DREW GRIGGS/KATHLEEN/HMO/PPO [id number] as of this encounter
== END ==
PROVIDERS: Family Provider Family Medicine; PCP Family Medicine; Referring Provider Family Medicine; Visit Provider Family Medicine
DX: E04.2 Nontoxic multinodular goiter (principal); Z13.1 Encounter for screening for diabetes mellitus; Z12.5 Encounter for screening for malignant neoplasm of prostate
CPT/HCPCS: 36415; 80053; 80061; 84153; 84443; 85025; G0103

== ENCOUNTER → 2019-02-01 12:45 | Outpatient (CLI) | payer BC, SELFPAY ==
[2019-02-01 13:35] LABS: Absolute Neutrophil Count 5.1 X10^3/uL (2.0-7.7); Basophil# 0.03 X10^3/uL; Basophil% 0.4 % (0-1); Eosinophil# 0.14 X10^3/uL; Eosinophils% 1.9 % (0-5); Hematocrit 46.6 % (40-54); Hemoglobin 15.8 g/dL (13.0-16.5); Lymphocyte % 20.6 % (19-41); Mean Corp Hgb Conc 33.9 g/dL (32-36); Mean Corpuscular Hgb 29.1 pg (27.0-32.0); Mean Corpuscular Volume 85.8 fL (80-94); Mean Platelet Vol. 10.3 fl (6.2-12.0); Monocyte% 6.9 % (0-10); NRBC Flagged by Analyzer 0 % (0-5); Neutrophil % 69.9 % (47-70); Platelet Count 162 K/mm3 (150-450); RBC Distribution Width CV 13.6 % (11.6-14.6); RBC Distribution Width SD 42.5 fl (35.1-43.9); Red Blood Count 5.43 M/mm3 (4.6-6.2); White Blood Count 7.3 K/mm3 (4.4-11.0)
[2019-02-01 14:13] LABS: ALB/GLOB Ratio 1.2 RATIO (0.9-2.4); AST(SGOT) 18 U/L (15-37); Alanine Aminotransfer ALT/SGPT 21 U/L (16-61); Albumin, Serum 3.9 g/dL (3.2-5.0); Alkaline Phosphatase 71 U/L (45-117); Anion Gap 6 (5-15); BUN 19 mg/dL (7-18); BUN/Creat Ratio 16.1 RATIO (10-20); Chloride 108 mmol/L (98-107); Cholesterol 190 mg/dL (200); Creatinine, Serum 1.18 mg/dL (0.70-1.30); EST Glomerular Filtration Rate 65 mL/min (>60); Est Glom Filt Rate - Afr Amer 79 mL/min (>60); Globulin 3.2 g/dL (2.2-4.2); Glucose 86 mg/dL (74-106); High Density Lipoprotein 42 mg/dL; Potassium 4.3 mmol/L (3.5-5.1); Protein, Total 7.1 g/dL (6.4-8.2); Sodium Level 141 mmol/L (136-145); Thyroid Stim Hormone (TSH) 0.79 uIU/mL (0.358-3.74); Triglycerides 141 mg/dL; Very Low Density Lipoprotein 28 mg/dL (5-40)
== END ==
PROVIDERS: Family Provider Family Medicine; PCP Family Medicine; Referring Provider Family Medicine; Visit Provider Family Medicine
DX: Z13.220 Encounter for screening for lipoid disorders (principal); Z13.1 Encounter for screening for diabetes mellitus; Z12.5 Encounter for screening for malignant neoplasm of prostate
CPT/HCPCS: 36415; 80053; 80061; 84443; 85025

== ENCOUNTER → 2019-10-25 08:14 | Outpatient (CLI) | payer BC, SELFPAY ==
--- NOTE | 2019-10-25 08:29 | EKG12_ITS ---
Test Reason : ROUTINE Blood Pressure : / mmHG Vent. Rate : 055 BPM Atrial Rate : 055 BPM P-R Int : 162 ms QRS Dur : 142 ms QT Int : 502 ms P-R-T Axes : 051 -58 -26 degrees QTc Int : 480 ms Sinus bradycardia with sinus arrhythmia Right bundle branch block Left anterior fascicular block Bifascicular block Abnormal ECG Confirmed by DANIAL ASHTON ([id number]), book editor KARINA PANDYA ([id number]) on 10/28/2019 2:02:50 PM Referred By: GIOVANNY CHUNG Confirmed By:DANIAL ASHTON
[2019-10-25 09:13] LABS: Anion Gap 3 (5-15); BUN 25 mg/dL (7-18); BUN/Creat Ratio 19.2 RATIO (10-20); Calcium,Total 8.6 mg/dL (8.5-10.1); Chloride 110 mmol/L (98-107); EST Glomerular Filtration Rate 58 mL/min (>60); Est Glom Filt Rate - Afr Amer 70 mL/min (>60); Glucose 97 mg/dL (74-106); Potassium 4.6 mmol/L (3.5-5.1); Sodium Level 140 mmol/L (136-145)
== END ==
PROVIDERS: PCP Family Medicine
DX: I48.91 Unspecified atrial fibrillation (principal)
CPT/HCPCS: 36415; 80048; 93005

== ENCOUNTER → 2020-08-13 11:17 | Outpatient (CLI) | payer MEDICARE, BC, SELFPAY ==
[2020-08-13 11:55] LABS: Absolute Lymphocyte Count 1.34 X10^3/uL (0.83-4.51); Absolute Neutrophil Count 4.4 X10^3/uL (2.0-7.7); Basophil# 0.03 X10^3/uL; Basophil% 0.5 % (0-1); Eosinophil# 0.08 X10^3/uL; Eosinophils% 1.3 % (0-5); Hematocrit 46.9 % (40-54); Hemoglobin 15.3 g/dL (13.0-16.5); Lymphocyte # 1.34 X10^3/ul (0.83-4.51); Lymphocyte % 21.2 % (19-41); Mean Corp Hgb Conc 32.6 g/dL (32-36); Mean Corpuscular Hgb 28.2 pg (27.0-32.0); Mean Corpuscular Volume 86.5 fL (80-94); Mean Platelet Vol. 10.1 fl (6.2-12.0); Monocyte# 0.49 X10^3/uL; Monocyte% 7.8 % (0-10); NRBC Flagged by Analyzer 0 % (0-5); Neutrophil # 4.35 X10^3/uL (2.7-7.7); Neutrophil % 68.9 % (47-70); Platelet Count 187 K/mm3 (150-450); RBC Distribution Width CV 14.2 % (11.6-14.6); RBC Distribution Width SD 44.9 fl (35.1-43.9); Red Blood Count 5.42 M/mm3 (4.6-6.2); White Blood Count 6.3 K/mm3 (4.4-11.0)
[2020-08-13 12:48] LABS: Vitamin B12 226 pg/mL (211-911)
[2020-08-13 13:11] LABS: ALB/GLOB Ratio 1.1 RATIO (0.9-2.4); AST(SGOT) 15 U/L (15-37); Alanine Aminotransfer ALT/SGPT 22 U/L (16-61); Albumin, Serum 3.9 g/dL (3.2-5.0); Alkaline Phosphatase 86 U/L (45-117); Anion Gap 7 (5-15); BUN 25 mg/dL (7-18); BUN/Creat Ratio 19.5 RATIO (10-20); Calcium,Total 8.9 mg/dL (8.5-10.1); Chloride 106 mmol/L (98-107); Cholesterol 187 mg/dL (200); Creatinine, Serum 1.28 mg/dL (0.70-1.30); EST Glomerular Filtration Rate 59 mL/min (>60); Est Glom Filt Rate - Afr Amer 71 mL/min (>60); Globulin 3.6 g/dL (2.2-4.2); Glucose 95 mg/dL (74-106); High Density Lipoprotein 45 mg/dL; PSA,Total - Annual Screen 5.37 ng/mL (0.00-4.00); Potassium 4.7 mmol/L (3.5-5.1); Protein, Total 7.5 g/dL (6.4-8.2); Sodium Level 140 mmol/L (136-145); Thyroid Stim Hormone (TSH) 1.38 uIU/mL (0.358-3.74); Triglycerides 121 mg/dL; Very Low Density Lipoprotein 24 mg/dL (5-40)
== END ==
PROVIDERS: PCP Family Medicine
DX: I48.91 Unspecified atrial fibrillation (principal); I10 Essential (primary) hypertension; E04.2 Nontoxic multinodular goiter; Z79.899 Other long term (current) drug therapy; Z12.5 Encounter for screening for malignant neoplasm of prostate
CPT/HCPCS: 36415; 80053; 80061; 82607; 83735; 84153; 84443; 85025; G0103

== ENCOUNTER → 2020-12-01 11:06 | Outpatient (CLI) | payer MEDICARE, BC, SELFPAY ==
--- NOTE | 2020-12-01 11:20 | RAD_ITS ---
STUDY: X-RAY CHEST REASON FOR EXAM: Male, 75 years old. Chest pain and shortness of breath TECHNIQUE: PA and lateral views of the chest. COMPARISON: None. FINDINGS: The lungs are clear and expanded. There is no demonstrated pleural abnormality. Normal size heart. Normal mediastinum and fredis. Normal visualized pulmonary arteries. Normal visualized aortic arch and descending thoracic aorta. There are diffuse degenerative changes of the visualized thoracic spine. There is degenerative osteoarthritis of the bilateral shoulders. There is no demonstrated abnormality of the visualized soft tissue structures of the upper abdomen. RAD/Chest PA and Lateral IMPRESSION: No acute pulmonary process Electronically Signed: Robert Sims MD at 17:11 EDT , Service support ,
[2020-12-01 11:48] LABS: Absolute Lymphocyte Count 0.96 X10^3/uL (0.83-4.51); Absolute Neutrophil Count 4.5 X10^3/uL (2.0-7.7); Basophil# 0.02 X10^3/uL; Basophil% 0.3 % (0-1); Eosinophil# 0.05 X10^3/uL; Eosinophils% 0.8 % (0-5); Hematocrit 25.5 % (40-54); Hemoglobin 7.9 g/dL (13.0-16.5); Lymphocyte # 0.96 X10^3/ul (0.83-4.51); Lymphocyte % 15.9 % (19-41); Mean Corpuscular Hgb 30.2 pg (27.0-32.0); Mean Corpuscular Volume 97.3 fL (80-94); Monocyte# 0.48 X10^3/uL; Monocyte% 7.9 % (0-10); NRBC Flagged by Analyzer 0 % (0-5); Neutrophil # 4.49 X10^3/uL (2.7-7.7); Neutrophil % 74.4 % (47-70); Platelet Count 190 K/mm3 (150-450); RBC Distribution Width CV 18.1 % (11.6-14.6); RBC Distribution Width SD 63.3 fl (35.1-43.9); Red Blood Count 2.62 M/mm3 (4.6-6.2)
[2020-12-01 12:20] LABS: AST(SGOT) 11 U/L (15-37); Alanine Aminotransfer ALT/SGPT 22 U/L (16-61); Albumin, Serum 3.3 g/dL (3.2-5.0); Alkaline Phosphatase 55 U/L (45-117); Anion Gap 3 (5-15); BUN 24 mg/dL (7-18); BUN/Creat Ratio 20.9 RATIO (10-20); Calcium,Total 8.5 mg/dL (8.5-10.1); Chloride 111 mmol/L (98-107); Creatinine, Serum 1.15 mg/dL (0.70-1.30); EST Glomerular Filtration Rate 66 mL/min (>60); Est Glom Filt Rate - Afr Amer 80 mL/min (>60); Globulin 3.2 g/dL (2.2-4.2); Glucose 104 mg/dL (74-106); Potassium 4.6 mmol/L (3.5-5.1); Protein, Total 6.5 g/dL (6.4-8.2); Sodium Level 138 mmol/L (136-145)
== END ==
PROVIDERS: PCP Family Medicine; Referring Provider Family Medicine; Visit Provider Family Medicine
DX: R06.02 Shortness of breath (principal); R42 Dizziness and giddiness
CPT/HCPCS: 36415; 71046; 80053; 85025

== ENCOUNTER → 2020-12-14 09:05 | Outpatient (CLI) | payer MEDICARE, BC, SELFPAY ==
--- NOTE | 2020-12-14 09:07 | EKG12_ITS ---
Test Reason : PRE OP Blood Pressure : / mmHG Vent. Rate : 066 BPM Atrial Rate : 066 BPM P-R Int : 166 ms QRS Dur : 138 ms QT Int : 472 ms P-R-T Axes : 057 -44 026 degrees QTc Int : 494 ms Sinus rhythm with marked sinus arrhythmia Left axis deviation Right bundle branch block Abnormal ECG Confirmed by BARBARA DE LA ROSA, SARAH ([id number]), newspaper photo editor ANDREWS RAMAN ([id number]) on 12/21/2020 12:33:45 PM Referred By: LIBIA CHO Confirmed By:NORMA JIMENEZ MD
== END ==
PROVIDERS: PCP Family Medicine
DX: I48.0 Paroxysmal atrial fibrillation (principal)
CPT/HCPCS: 93005

== ENCOUNTER → 2021-02-01 | Outpatient (CLI) | payer MEDICARE, BC, SELFPAY ==
--- NOTE | 2021-02-01 | PROSBIL_PTH ---
PATIENT: KRISS SPANGLER II LOC: [facility] U#:[id number] AGE/SX: 75/M ROOM: RE02/01/[address]: Dr. Juan Cook MD : 1945 BED: DIS: 02/01/2021 SPEC #: [id number] RECD: 02/01/21 16:21 STATUS: CLARI NOEL #: [id number] TESSIE: 02/01/21 00:[address]: Juan Cook DEPT: SURGICAL PATHOLOGY RECD BY: Conner Anderson ENTERED: 02/02/21 09:15 SP TYPE: PROST BX MJ DR: Dr. Susan Eller MD Tissues: A - PROSTATE RIGHT B - PROSTATE RIGHT C - PROSTATE RIGHT D - PROSTATE LEFT E - PROSTATE LEFT F - PROSTATE LEFT Procedures: PROSTATE BX HEADER OPERATION: Prostate biopsy PRE-OP DIAGNOSIS: R97.20 TISSUE SUBMITTED: A - Right apex, B - Right mid, C - Right base, D - Left apex, E - Left mid, F - Left base MICROSCOPIC DIAGNOSIS A. Right prostate, apex, core biopsy: Benign prostatic tissue B. Right prostate, mid, core biopsy: Benign prostatic tissue C. Right prostate, base, core biopsy: Focal glandular atrophy D. Left prostate, apex, core biopsy: Benign prostatic tissue E. Left prostate, mid, core biopsy: Benign prostatic tissue F. Left prostate, base, core biopsy: Benign prostatic tissue AM:lee ann 02/03/21 MICROSCOPIC DESCRIPTION Slides are reviewed. GROSS DESCRIPTION A - Received is one container designated prostate, right apex. The specimen consists of one elongated fragment of light velez-white soft tissue measuring 2 cm in length and 0.1 cm in diameter. The specimen is totally submitted in one cassette. B - Received is one container designated prostate, right mid. The specimen consists of one elongated fragment of light velez-white soft tissue measuring 1 cm in length and 0.1 cm in diameter. The specimen is totally submitted in one cassette. C - Received is one container designated prostate, right base. The specimen consists of one elongated fragment of light velez-white soft tissue measuring 1.2 cm in length and 0.1 cm in diameter. The specimen is totally submitted in one cassette. D - Received is one container designated prostate, left apex. The specimen consists of one elongated fragment of light velez-white soft tissue each measuring 1.6 cm in length and 0.1 cm in diameter. The specimen is totally submitted in one cassette. E - Received is one container designated prostate, left mid. The specimen consists of two elongated fragments of light velez-white soft tissue each measuring 0.5 cm in length and 0.1 cm in diameter. The specimen is totally submitted in one cassette. F - Received is one container designated prostate, left base. The specimen consists of one elongated fragment of light velez-white soft tissue measuring 1 cm in length and 0.1 cm in diameter. The specimen is totally submitted in one cassette. / SJ:rg 02/02/2021 TC:3 CPT: G0146
== END | disposition home or self-care (01) ==
LOC: LABSPEC 16:30
PROVIDERS: PCP Family Medicine; Referring Provider Urology; Visit Provider Urology
DX: R97.20 Elevated prostate specific antigen [PSA] (principal)
CPT/HCPCS: 88305; G0416

== ENCOUNTER → 2021-11-04 | Outpatient (CLI) | payer MEDICARE, BC, SELFPAY ==
[2021-11-04 09:49] LABS: Absolute Neutrophil Count 3.9 X10^3/uL (2.0-7.7); Basophil# 0.03 X10^3/uL; Basophil% 0.5 % (0-1); Eosinophil# 0.06 X10^3/uL; Hematocrit 44.7 % (40-54); Hemoglobin 15.3 g/dL (13.0-16.5); Lymphocyte % 24.8 % (19-41); Mean Corp Hgb Conc 34.2 g/dL (32-36); Mean Corpuscular Hgb 29.9 pg (27.0-32.0); Mean Corpuscular Volume 87.3 fL (80-94); Mean Platelet Vol. 10.9 fl (6.2-12.0); Monocyte# 0.56 X10^3/uL; Monocyte% 9.2 % (0-10); NRBC Flagged by Analyzer 0 % (0-5); Neutrophil # 3.88 X10^3/uL (2.7-7.7); Platelet Count 158 K/mm3 (150-450); RBC Distribution Width CV 14.5 % (11.6-14.6); RBC Distribution Width SD 46.6 fl (35.1-43.9); Red Blood Count 5.12 M/mm3 (4.6-6.2); White Blood Count 6.1 K/mm3 (4.4-11.0)
[2021-11-04 10:19] LABS: Anion Gap 4 (5-15); BUN 23 mg/dL (7-18); BUN/Creat Ratio 19.5 RATIO (10-20); Calcium,Total 9.3 mg/dL (8.5-10.1); Chloride 109 mmol/L (98-107); Creatinine, Serum 1.18 mg/dL (0.70-1.30); EST Glomerular Filtration Rate 64 mL/min (>60); Est Glom Filt Rate - Afr Amer 78 mL/min (>60); Glucose 99 mg/dL (74-106); Magnesium 2.1 mg/dL (1.6-2.6); Potassium 4.6 mmol/L (3.5-5.1); Sodium Level 141 mmol/L (136-145)
== END | disposition home or self-care (01) ==
PROVIDERS: PCP Family Medicine; Referring Provider Family Medicine; Visit Provider Family Medicine
DX: I10 Essential (primary) hypertension (principal)
CPT/HCPCS: 36415; 80048; 83735; 85025

== ENCOUNTER → 2022-05-26 | Outpatient (CLI) | payer MEDICARE, BC, SELFPAY ==
[2022-05-26 10:34] LABS: Absolute Lymphocyte Count 1.09 X10^3/uL (0.83-4.51); Absolute Neutrophil Count 3.3 X10^3/uL (2.0-7.7); Basophil# 0.03 X10^3/uL; Basophil% 0.6 % (0-1); Eosinophil# 0.06 X10^3/uL; Eosinophils% 1.2 % (0-5); Hemoglobin 15.9 g/dL (13.0-16.5); Lymphocyte # 1.09 X10^3/ul (0.83-4.51); Lymphocyte % 22.4 % (19-41); Mean Corp Hgb Conc 33.8 g/dL (32-36); Mean Corpuscular Hgb 29.6 pg (27.0-32.0); Mean Corpuscular Volume 87.4 fL (80-94); Mean Platelet Vol. 10.9 fl (6.2-12.0); Monocyte# 0.41 X10^3/uL; Monocyte% 8.4 % (0-10); NRBC Flagged by Analyzer 0 % (0-5); Neutrophil # 3.25 X10^3/uL (2.7-7.7); Platelet Count 141 K/mm3 (150-450); RBC Distribution Width CV 13.8 % (11.6-14.6); RBC Distribution Width SD 44.1 fl (35.1-43.9); Red Blood Count 5.38 M/mm3 (4.6-6.2); White Blood Count 4.9 K/mm3 (4.4-11.0)
[2022-05-26 11:06] LABS: Vitamin B12 560 pg/mL (211-911)
[2022-05-26 11:07] LABS: ALB/GLOB Ratio 1.1 RATIO (0.9-2.4); AST(SGOT) 16 U/L (15-37); Alanine Aminotransfer ALT/SGPT 21 U/L (16-61); Albumin, Serum 3.7 g/dL (3.2-5.0); Alkaline Phosphatase 74 U/L (45-117); Anion Gap 6 (5-15); BUN 20 mg/dL (7-18); BUN/Creat Ratio 16.3 RATIO (10-20); Chloride 111 mmol/L (98-107); Cholesterol 189 mg/dL (200); Creatinine, Serum 1.23 mg/dL (0.70-1.30); EST Glomerular Filtration Rate 61 mL/min (>60); Est Glom Filt Rate - Afr Amer 74 mL/min (>60); Globulin 3.3 g/dL (2.2-4.2); Glucose 95 mg/dL (74-106); High Density Lipoprotein 44 mg/dL; Magnesium 1.9 mg/dL (1.6-2.6); Potassium 4.7 mmol/L (3.5-5.1); Sodium Level 142 mmol/L (136-145); Thyroid Stim Hormone (TSH) 0.67 uIU/mL (0.358-3.74); Triglycerides 125 mg/dL; Very Low Density Lipoprotein 25 mg/dL (5-40)
== END | disposition home or self-care (01) ==
PROVIDERS: PCP Family Medicine
DX: I48.0 Paroxysmal atrial fibrillation (principal); I10 Essential (primary) hypertension
CPT/HCPCS: 36415; 80053; 80061; 82607; 83735; 84443; 85025

== ENCOUNTER → 2023-01-06 | Outpatient (CLI) | payer MEDICARE, BC, SELFPAY ==
[2023-01-06 11:17] LABS: Anion Gap 7 (5-15); BUN 22 mg/dL (7-18); BUN/Creat Ratio 18.2 RATIO (10-20); Calcium,Total 8.4 mg/dL (8.5-10.1); Chloride 110 mmol/L (98-107); Creatinine, Serum 1.21 mg/dL (0.70-1.30); EST Glomerular Filtration Rate 62 mL/min (>60); Est Glom Filt Rate - Afr Amer 75 mL/min (>60); Glucose 88 mg/dL (74-106); Magnesium 1.9 mg/dL (1.6-2.6); Potassium 4.1 mmol/L (3.5-5.1); Sodium Level 141 mmol/L (136-145)
== END | disposition home or self-care (01) ==
LOC: LAB 10:18
PROVIDERS: PCP Family Medicine
DX: I48.0 Paroxysmal atrial fibrillation (principal)
CPT/HCPCS: 36415; 80048; 83735

== ENCOUNTER → 2023-05-25 | Outpatient (CLI) | payer MEDICARE, BC, SELFPAY ==
[2023-05-25 12:15] LABS: Absolute Lymphocyte Count 1.25 X10^3/uL (0.83-4.51); Basophil# 0.02 X10^3/uL; Basophil% 0.3 % (0-1); Eosinophil# 0.06 X10^3/uL; Hematocrit 45.8 % (40-54); Hemoglobin 15.1 g/dL (13.0-16.5); Lymphocyte # 1.25 X10^3/ul (0.83-4.51); Lymphocyte % 21.4 % (19-41); Mean Corpuscular Hgb 28.7 pg (27.0-32.0); Mean Corpuscular Volume 87.1 fL (80-94); Mean Platelet Vol. 10.9 fl (6.2-12.0); Monocyte# 0.46 X10^3/uL; Monocyte% 7.9 % (0-10); NRBC Flagged by Analyzer 0 % (0-5); Neutrophil # 4.03 X10^3/uL (2.7-7.7); Neutrophil % 69.1 % (47-70); Platelet Count 133 K/mm3 (150-450); RBC Distribution Width CV 14.1 % (11.6-14.6); RBC Distribution Width SD 45.2 fl (35.1-43.9); Red Blood Count 5.26 M/mm3 (4.6-6.2); White Blood Count 5.8 K/mm3 (4.4-11.0)
[2023-05-25 13:03] LABS: Vitamin B12 287 pg/mL (211-911)
[2023-05-25 14:42] LABS: ALB/GLOB Ratio 1.2 RATIO (0.9-2.4); AST(SGOT) 17 U/L (15-37); Alanine Aminotransfer ALT/SGPT 17 U/L (16-61); Albumin, Serum 3.8 g/dL (3.2-5.0); Alkaline Phosphatase 67 U/L (45-117); Anion Gap 5 (5-15); BUN 20 mg/dL (7-18); BUN/Creat Ratio 17.4 RATIO (10-20); Calcium,Total 8.6 mg/dL (8.5-10.1); Chloride 110 mmol/L (98-107); Cholesterol 182 mg/dL (200); Creatinine, Serum 1.15 mg/dL (0.70-1.30); EST Glomerular Filtration Rate 66 mL/min (>60); Est Glom Filt Rate - Afr Amer 80 mL/min (>60); Globulin 3.2 g/dL (2.2-4.2); Glucose 95 mg/dL (74-106); High Density Lipoprotein 44 mg/dL; PSA,Total - Annual Screen 2.47 ng/mL (0.00-4.00); Potassium 4.7 mmol/L (3.5-5.1); Sodium Level 140 mmol/L (136-145); T4 Free Direct 0.96 ng/dL (0.76-1.46); Thyroid Stim Hormone (TSH) 0.82 uIU/mL (0.358-3.74); Triglycerides 112 mg/dL; Very Low Density Lipoprotein 22 mg/dL (5-40)
== END | disposition home or self-care (01) ==
LOC: LAB 11:37
PROVIDERS: PCP Family Medicine; Visit Provider Family Medicine
DX: I10 Essential (primary) hypertension (principal); I48.0 Paroxysmal atrial fibrillation; Z12.5 Encounter for screening for malignant neoplasm of prostate
CPT/HCPCS: 36415; 80053; 80061; 82607; 84153; 84439; 84443; 85025; G0103

== ENCOUNTER → 2024-01-16 | Outpatient (CLI) | payer MEDICARE, BC, SELFPAY ==
[2024-01-16 10:29] LABS: Anion Gap 6 (5-15); BUN 30 mg/dL (7-18); BUN/Creat Ratio 25.4 RATIO (10-20); Calcium,Total 8.8 mg/dL (8.5-10.1); Chloride 107 mmol/L (98-107); Creatinine, Serum 1.18 mg/dL (0.70-1.30); EST Glomerular Filtration Rate 64 mL/min (>60); Est Glom Filt Rate - Afr Amer 77 mL/min (>60); Glucose 96 mg/dL (74-106); Magnesium 2.3 mg/dL (1.6-2.6); Potassium 4.7 mmol/L (3.5-5.1); Sodium Level 140 mmol/L (136-145)
== END | disposition home or self-care (01) ==
PROVIDERS: PCP Family Medicine
DX: I48.0 Paroxysmal atrial fibrillation (principal)
CPT/HCPCS: 36415; 80048; 83735

== ENCOUNTER → 2024-08-26 | Outpatient (CLI) | payer MEDICARE, BC, SELFPAY ==
[2024-08-26 09:53] LABS: Anion Gap 11 (5-15); BUN 23 mg/dL (4-19); BUN/Creat Ratio 21.5 RATIO (10-20); Calcium,Total 9.3 mg/dL (7.6-11.0); Carbon Dioxide 24.4 mmol/L (21.0-32.0); Chloride 106 mmol/L (98-108); Creatinine, Serum 1.07 mg/dL (0.70-1.20); EST Glomerular Filtration Rate 72 (>60); Glucose 101 mg/dL (70-99); Potassium 4.6 mmol/L (3.3-5.1); Sodium Level 141 mmol/L (133-145)
== END | disposition home or self-care (01) ==
LOC: LAB 08:21
PROVIDERS: PCP Family Medicine
DX: I48.0 Paroxysmal atrial fibrillation (principal)
CPT/HCPCS: 36415; 80048

== ENCOUNTER → 2024-12-23 | Outpatient (CLI) | payer MEDICARE, BC, SELFPAY ==
[2024-12-23 11:13] LABS: Hematocrit 44.9 % (40-54); Hemoglobin 14.8 g/dL (13.0-16.5); Immature Granulocytes Count 0.030 X10^3/uL (0.0-0.0); Mean Corp Hgb Conc 33.0 g/dL (32-36); Mean Corpuscular Volume 88.9 fL (80-94); Mean Platelet Vol. 11.4 fl (6.2-12.0); NRBC Flagged by Analyzer 0 % (0-5); Platelet Count 149 K/mm3 (150-450); RBC Distribution Width CV 14.1 % (11.6-14.6); RBC Distribution Width SD 45.3 fl (35.1-43.9); Red Blood Count 5.05 M/mm3 (4.6-6.2); White Blood Count 7.6 K/mm3 (4.4-11.0)
[2024-12-23 12:06] LABS: AST(SGOT) 20 U/L (<=37); Alanine Aminotransfer ALT/SGPT 18 U/L (<=46); Albumin, Serum 4.4 g/dL (3.4-4.8); Alkaline Phosphatase 67 U/L (40-129); Anion Gap 9 (5-15); BUN 24 mg/dL (4-19); BUN/Creat Ratio 20.7 RATIO (10-20); Calcium,Total 9.3 mg/dL (7.6-11.0); Carbon Dioxide 25.6 mmol/L (21.0-32.0); Chloride 105 mmol/L (98-108); Cholesterol 161 mg/dL (<=200); Globulin 2.6 g/dL (2.2-4.2); Glucose 87 mg/dL (70-99); Low Density Lipoprotein Calc. 87 mg/dL; PSA,Total - Annual Screen 1.87 ng/mL (0.02-4.00); Potassium 4.7 mmol/L (3.3-5.1); Triglycerides 165 mg/dL; Very Low Density Lipoprotein 33 mg/dL (5-40); cholesterol:hdl ratio screen 3.90
== END | disposition home or self-care (01) ==
LOC: LAB 10:21
PROVIDERS: PCP Family Medicine; Referring Provider Family Medicine; Visit Provider Family Medicine
DX: I48.0 Paroxysmal atrial fibrillation (principal); I10 Essential (primary) hypertension; Z12.5 Encounter for screening for malignant neoplasm of prostate
CPT/HCPCS: 36415; 80053; 80061; 84153; 84439; 84443; 85025; G0103